=== PATIENT | female | born 1940 | race Caucasian/White ===

== ENCOUNTER 2023-04-24 09:52 | Inpatient (IN) ==
[2023-04-24] MEDS ORDERED: SODIUM CHLORIDE 0.9% 500 ML IV ONE ×2 (10:28→14:34)
--- NOTE | 2023-04-24 10:29 | Emergency Department Note ---
Impression & Plan Sepsis, Rhinovirus, Stercoral colitis, UTI (urinary tract infection), Pneumonia, COVID-19, Dehydration, Elevated lactic acid level ED Provider Note NAME: DUSTIN BOX AGE: 82 SEX: F ARRIVES VIA: Ambulance INFORMANT: Patient ED PROVIDER(S): Pedro Santiago MD CHIEF COMPLAINT: Shortness of breath, vomiting PLAN: Disposition: Admit MEDICAL DECISION MAKING: The patient is a pleasant 82-year-old woman with a past medical history of dementia, hypertension who presents to emergency department via EMS from her dementia unit and then accompanied by family member for evaluation of generalized weakness with shortness of breath and is intractable nausea and vomiting that was noticed earlier this morning. Per staff at her facility the patient was more fatigued last night and when they checked on her today noticed she appeared pale and ill. The patient's family ember reports that she did test positive for COVID-19 a week or so ago as a part of a screening effort within her facility but she was not having any symptoms at the time. They feel she may have had a cough here and there but nothing more than that. On my evaluation the patient is ill-appearing/fatigued but no acute distress, afebrile with stable vital signs. She appears clinically dry with dry cracked/mucous membranes. Skin is mottled with tenting. She has scant rhonchi of bilateral lower lung puente. Abdomen is benign. EKG without overt acute ischemia. CXR demonstrates interstitial reticular opacities and bilateral pleural effusions per my review. WBC within normal limits. There is no left shift. Platelets within normal limits. H/H 16.7/51.9 consistent with the patient's dehydration and suspected hemoconcentration. Initial lactic acid 4.4 improving to 4.0 with IV fluid hydration. Chemistry is without metabolic acidosis however. Calcium 10.4, consistent with the patient's dehydration. Electrolytes and LFTs are otherwise unremarkable. High-sensitivity troponin 23 with delta high-sensitivity troponin 22, nonspecific. Lipase not elevated. Procalcitonin is elevated at 13 raising suspicion for bacterial infection. TSH is 7 however free T4 within normal limits. UA is suspicious for infection with positive nitrites and 1+ bacteria. Respiratory bio fire was performed and was positive for COVID-19 which per report was positive a week ago and additionally positive for rhinovirus. CT of the abdomen pelvis was performed and demonstrates interstitial septal thickening at both lung bases with small pleural effusions which may suggest volume overload however given the patient's clinically dry exam there is more suspicion for pneumonia. Additional note is made of rectosigmoid fecal retention. Patient did receive 30 cc/kg of IV fluid> and additionally IV antibiotics with Zosyn. MRSA swab pending. Of note, the patient does have a POLST form for [employer] family is interested and prefers admission at this time for further medical stabilization. They are okay with continued IV fluid hydration and antibiotics. Case was discussed with MISHEL Reyes PAC, with Dr. Rincon [facility] hospitalist who will evaluate the patient for admission. Further management per admitting team. Triage Nursing notes reviewed and agree them. Prior/outside medical records reviewed Vital Signs: reviewed Differential diagnosis: Sepsis, UTI, pneumonia, metabolic, electrolyte abnormalities, cardiac sources, i ntracerebral event, toxicologic, neurologic, as well as other pathologies. ER treatment provided: See below. Diagnostics interpreted by me: ECG: Normal sinus rhythm, 83 bpm, no ectopy, no overt ST elevation or depression, QTc 413, 272. Cardiac Monitoring: An order for continuous cardiac monitoring was placed and demonstrated Normal sinus rhythm, 83 bpm, no ectopy. Laboratory studies: See below Imaging studies: See below Consultation(s): Case was discussed with MISHEL Reyes PAC, with Dr. Rincon [facility] hospitalist who will evaluate the patient for admission. HPI: The patient is a pleasant 82-year-old woman with a past medical history of dementia, hypertension who presents to emergency department via EMS from her dementia unit and then accompanied by family member for evaluation of generalized weakness with shortness of breath and is intractable nausea and vomiting that was noticed earlier this morning. Per staff at her facility the patient was more fatigued last night and when they checked on her today noticed she appeared pale and ill. The patient's family ember reports that she did test positive for COVID-19 a week or so ago as a part of a screening effort within her facility but she was not having any symptoms at the time. They feel she may have had a cough here and there but nothing more than that. ROS: See above HPI for pertinent positives & negatives. A total of 10 systems reviewed and were otherwise negative. VITALS:See Below PHYSICAL EXAMINATION: GENERAL: Awake, alert, ill-appearing, in no distress HENT: Normocephalic, atraumatic. Oropharynx with dry/cracked mucous membranes and otherwise unremarkable. EYES: Normal conjunctiva. Sclera non-icteric. NECK: Supple. No nuchal rigidity. FROM. No JVD. RESPIRATORY: Scant rhonchi of bilateral lower lung puente with normal resp iratory effort. CARDIAC: Regular rate, normal rhythm. Extremities warm and well perfused. Pulses equal. ABDOMEN: Soft, non-distended. No tenderness to palpation. No rebound or guarding. No masses. RECTAL: Deferred. MUSCULOSKELETAL: Chest examination reveals no tenderness. The back is symmetrical on inspection without obvious abnormality. There is no CVA tenderness to palpation. No joint edema. LOWER EXTREMITIES: Calves are equal size bilaterally and non-tender. No edema. No discoloration. NEURO: Pleasantly confused. No focal sensory or motor deficits noted. Moving all extremities equally. SKIN: Dry, mottled with tenting. No rash or jaundice noted. ED COURSE: Critical Care: I have personally spent greater than 35 minutes of critical care time in the direct management of this patient. This includes bedside care, interpretation of diagnostic studies, and testing, discussion with consultants, patient, and family members, and other required patient management activities. This 35 minutes is in excess of all separately billable procedures. Pedro Santiago MD Past Med/Surg History Medical History Dementia HTN (hypertension) Social History Smoking Status: Never smoker Preferred Language: Sami Allergies Allergies Allergy/AdvReac Type Severity Reaction Status Date / Time amoxicillin Allergy Anaphylaxis Verified 04/24/23 14:40 hydrochlorothiazide Allergy Unknown Unverified 04/24/23 15:17 Penicillins Allergy Unknown Unverified 04/24/23 15:17 simvastatin Allergy Unknown Unverified 04/24/23 15:17 triamterene Allergy Unknown Unverified 04/24/23 15:17 Home Meds Home Medications Medication Instructions Recorded Confirmed Centrum Gummies 50 mcg PO . AT 0600 04/24/23 04/24/23 Glucosamine 1,500 mg PO .AT 0604/24/23 04/24/23 Lactobacillus acidophilus 1 cap PO .AT 0604/24/2323 acetaminophen 500 mg tablet 500 mg PO QID PRN Pain 04/24/23 04/24/23 buspirone 10 mg tablet 10 mg PO . AT 0600,1300,1800 04/24/23 04/24/23 calcium carb-ergocalciferol (vit 2 tab PO .AT 0600, 1900 04/24/23 04/24/23 D2) 600 mg calcium-200 unit tablet carboxymethylcellulose sodium 0.25 1 drp ophthalmic (eye) . AT 04/24/23 04/24/23 % eye drops (TheraTears) 0600,2100 diclofenac sodium 1 % topical gel See Rx Instructions .Route .COMPLEX 04/24/23 04/24/23 donepezil 10 mg tablet 10 mg PO .AT 199904/24/23 04/24/23 ezetimibe 10 mg tablet (Zetia) 10 mg PO .AT 0604/24/23 04/24/23 hydrocortisone 2.5 % topical cream 1 applic topical Q8H PRN ITCH 04/24/23 04/24/23 omega-3 fatty acids 1 cap PO .AT 0604/24/23 04/24/23 polyethylene glycol 3350 17 17 g PO . AT 1300 04/24/23 04/24/23 gram/dose oral powder (Miralax) venlafaxine 37.5 mg 37.5 mg PO .AT 0604/24/23 04/24/23 capsule,extended release 24 hr (Effexor XR) venlafaxine 75 mg capsule,extended 75 [place] .[place] 59904/24/23 04/24/23 release 24 hr (Effexor XR) Results & Data (ED) Vital Signs Vital Signs - 24 hr 04/24/23 10:08 04/24/23 10:14 04/24/23 10:14 Temperature 36.6 C Temperature Source Oral Pulse Rate 86 78 Pulse Rate [Left Apical] Pulse Rhythm [Left Apical] Pulse Strength [Left Apical] Respiratory Rate 16 Respiratory Effort / Characteristics Non-Labored Respiratory Depth Normal Blood Pressure 144/94 H Blood Pressure [Right Arm] Blood Pressure Mean 110 Blood Pressure Mean [Right Arm] Pulse Oximetry 94 94 Oxygen Delivery Method Room Air Room Air Sepsis Recent Fever Within 48 Hours No Sepsis New/Unexplained Change in Mental Status No Sepsis Action Taken by Nursing No Action Required 04/24/23 10:27 04/24/23 13:06 04/24/23 14:08 Temperature Temperature Source Pulse Rate 78 Pulse Rate [Left Apical] 77 Pulse Rhythm [Left Apical] Regular Pulse Strength [Left Apical] Normal Respiratory Rate 16 Respiratory Effort / Characteristics Non-Labored Spontaneous Respiratory Depth Normal Blood Pressure Blood Pressure [Right Arm] 144/94 H Blood Pressure Mean Blood Pressure Mean [Right Arm] 110 Pulse Oximetry 94 92 Oxygen Delivery Method Room Air Room Air Sepsis Recent Fever Within 48 Hours Sepsis New/Unexplained Change in Mental Status Sepsis Action Taken by Nursing Laboratory Data Attestation: I reviewed the patient's lab results. 04/24/23 10:11 04/24/23 10:11 Lab Results 04/24/23 04/24/23 04/24/23 Range/Units 10:11 10:11 10:11 WBC 9.13 (4.8-10.8) K/ul RBC 5.47 H (4.20-5.40) M/uL Hgb 16.7 H (12.0-16.0) g/dl Hct 51.9 H (37.0-47.0) % MCV 94.9 (80.0-100.0) fL MCH 30.5 (25.0-34.0) pg MCHC 32.2 (32.0-36.0) g/dL RDW Std Deviation 45.4 (36.4-46.3) fL RDW Coeff of Edward 13.1 (11.5-14.5) % Plt Count 230 (130-400) K/uL MPV 8.6 L (9.4-12.4) fL Immature Gran % (Auto) 0.5 % Neut % (Auto) 92.5 % Lymph % (Auto) 5.5 % [place] % (Auto) 0.4 % Eos % (Auto) 0.7 % Baso % (Auto) 0.4 % Neut # (Auto) 8.44 H (1.40-6.50) K/uL Lymph # (Auto) 0.50 L (1.20-3.40) K/uL [place] # (Auto) 0.04 L (0.11-0.59) K/uL Eos # (Auto) 0.06 (0.00-0.50) K/uL Baso # (Auto) 0.04 (0.00-0.20) K/uL Immature Gran # (Auto) 0.05 (0.01-0.20) K/uL Absolute Nucleated RBC 0.02 (0.00-0.12) K/uL Nucleated RBC % (auto) 0.2 % Toxic Vacuolation 1+ PT 11.4 (9.0-12.0) Seconds INR 1.0 (0.9-1.1) Sodium 140 (136-145) mmol/L Potassium 3.7 (3.5-5.1) mmol/L Chloride 104 (98-107) mmol/L Carbon Dioxide 25 (21-32) mmol/L Anion Gap 11 (3-11) BUN 16 (6-23) mg/dl Creatinine 1.16 (0.6-1.2) mg/dl Est Cr Clr Drug Dosing Not Reportable Est GFR ( Amer) 51.5 ml/min Est GFR (Non-Af Amer) 44.4 ml/min BUN/Creatinine Ratio 13.8 (10-20) Glucose 106 H (70-99(Fasting)) mg/dl Lactate (0.4-2.0) mmol/L Calcium 10.4 H (8.6-10.3) mg/dl Phosphorus 4.5 (2.5-4.9) mg/dl Magnesium 2.0 (1.7-2.4) mg/dl Total Bilirubin 0.7 (0.2-1.0) mg/dl AST 28 (13-39) U/L ALT 19 (7-52) U/L Alkaline Phosphatase 78 (34-104) U/L Troponin I High Sens 23.4 H (0-14) pg/ml Total Protein 7.6 (6.0-8.3) gm/dl Albumin 3.8 (3.4-5.0) gm/dl Globulin 3.8 (2.5-4.0) gm/dl Albumin/Globulin Ratio 1.0 (0.9-2) Lipase 45 (11-82) U/L Procalcitonin (0-0.5) ng/ml TSH 7.100 H (0.300-4.500) uIu/ml Free T4 0.86 (0.61-1.60) ng/dl Urine Color Urine Appearance (Clear) Urine pH (4.5-7.5) Ur Specific Phelps (1.000-1.030) Urine Protein (Negative) Urine Glucose (UA) (Negative) Urine Ketones (Negative) Urine Blood (Negative) Urine Nitrite (Negative) Urine Bilirubin (Negative) Urine Urobilinogen (Negative) Ur Leukocyte Esterase (Negative) Urine WBC (Auto) (0-5) /hpf Urine RBC (Auto) (0-4) /hpf U Hyaline Cast (Auto) (0-5) /lpf U Epithel Cells (Auto) (0-5) /lpf Urine Bacteria (Auto) (Negative) Adenovirus (PCR) (NotDetected) B. pertussis DNA (PCR) (NotDetected) B.parapertussis DNA PCR (NotDetected) C. pneumoniae DNA (PCR) (NotDetected) Coronavirus OC43 (PCR) (NotDetected) Coronavirus HKU1 (PCR) (NotDetected) Coronavirus 229E (PCR) (NotDetected) SARS-CoV-2 (PCR) (NotDetected) Coronavirus NL63 (PCR) (NotDetected) Human Metapneumovir PCR (NotDetected) Influenza Type A (PCR) (NotDetected) Influenza Type B (PCR) (NotDetected) M. pneumoniae (PCR) (NotDetected) Parainfluenza 1 (PCR) (NotDetected) Parainfluenza 2 (PCR) (NotDetected) Parainfluenza 3 (PCR) (NotDetected) Parainfluenza 4 (PCR) (NotDetected) RSV (PCR) (NotDetected) Entero/Rhino (PCR) (NotDetected) 04/24/23 04/24/23 04/24/23 Range/Units 12:14 12:24 12:24 WBC (4.8-10.8) K/ul RBC (4.20-5.40) M/uL Hgb (12.0-16.0) g/dl Hct (37.0-47.0) % MCV (80.0-100.0) fL MCH (25.0-34.0) pg MCHC (32.0-36.0) g/dL RDW Std Deviation (36.4-46.3) fL RDW Coeff of Edward (11.5-14.5) % Plt Count (130-400) K/uL MPV (9.4-12.4) fL Immature Gran % (Auto) % Neut % (Auto) % Lymph % (Auto) % [place] % (Auto) % Eos % (Auto) % Baso % (Auto) % Neut # (Auto) (1.40-6.50) K/uL Lymph # (Auto) (1.20-3.40) K/uL [place] # (Auto) (0.11-0.59) K/uL Eos # (Auto) (0.00-0.50) K/uL Baso # (Auto) (0.00-0.20) K/uL Immature Gran # (Auto) (0.01-0.20) K/uL Absolute Nucleated RBC (0.00-0.12) K/uL Nucleated RBC % (auto) % Toxic Vacuolation PT (9.0-12.0) Seconds INR (0.9-1.1) Sodium (136-145) mmol/L Potassium (3.5-5.1) mmol/L Chloride (98-107) mmol/L Carbon Dioxide (21-32) mmol/L Anion Gap (3-11) BUN (6-23) mg/dl Creatinine (0.6-1.2) mg/dl Est Cr Clr Drug Dosing Est GFR ( Amer) ml/min Est GFR (Non-Af Amer) ml/min BUN/Creatinine Ratio (10-20) Glucose (70-99(Fasting)) mg/dl Lactate (0.4-2.0) mmol/L Calcium (8.6-10.3) mg/dl Phosphorus (2.5-4.9) mg/dl Magnesium (1.7-2.4) mg/dl Total Bilirubin (0.2-1.0) mg/dl AST (13-39) U/L ALT (7-52) U/L Alkaline Phosphatase (34-104) U/L Troponin I High Sens 22.1 H (0-14) pg/ml Total Protein (6.0-8.3) gm/dl Albumin (3.4-5.0) gm/dl Globulin (2.5-4.0) gm/dl Albumin/Globulin Ratio (0.9-2) Lipase (11-82) U/L Procalcitonin 13.71 H (0-0.5) ng/ml TSH (0.300-4.500) uIu/ml Free T4 (0.61-1.60) ng/dl Urine Color Yellow Urine Appearance Clear (Clear) Urine pH 5.5 (4.5-7.5) Ur Specific [place] 1.017 (1.000-1.030) Urine Protein Negative (Negative) Urine Glucose (UA) Negative (Negative) Urine Ketones Negative (Negative) Urine Blood Negative (Negative) Urine Nitrite Positive A (Negative) Urine Bilirubin Negative (Negative) Urine Urobilinogen Negative (Negative) Ur Leukocyte Esterase Trace H (Negative) Urine WBC (Auto) 1-5 (0-5) /hpf Urine RBC (Auto) 0-4 (0-4) /hpf U Hyaline Cast (Auto) 5-10 H (0-5) /lpf U Epithel Cells (Auto) 10-20 H (0-5) /lpf Urine Bacteria (Auto) 1+ H (Negative) Adenovirus (PCR) (NotDetected) B. pertussis DNA (PCR) (NotDetected) B.parapertussis DNA PCR (NotDetected) C. pneumoniae DNA (PCR) (NotDetected) Coronavirus OC43 (PCR) (NotDetected) Coronavirus HKU1 (PCR) (NotDetected) Coronavirus 229E (PCR) (NotDetected) SARS-CoV-2 (PCR) (NotDetected) Coronavirus NL63 (PCR) (NotDetected) Human Metapneumovir PCR (NotDetected) Influenza Type A (PCR) (NotDetected) Influenza Type B (PCR) (NotDetected) M. pneumoniae (PCR) (NotDetected) Parainfluenza 1 (PCR) (NotDetected) Parainfluenza 2 (PCR) (NotDetected) Parainfluenza 3 (PCR) (NotDetected) Parainfluenza 4 (PCR) (NotDetected) RSV (PCR) (NotDetected) Entero/Rhino (PCR) (NotDetected) 04/24/23 04/24/23 Range/Units 12:24 12:24 WBC (4.8-10.8) K/ul RBC (4.20-5.40) M/uL Hgb (12.0-16.0) g/dl Hct (37.0-47.0) % MCV (80.0-100.0) fL MCH (25.0-34.0) pg MCHC (32.0-36.0) g/dL RDW Std Deviation (36.4-46.3) fL RDW Coeff of Edward (11.5-14.5) % Plt Count (130-400) K/uL MPV (9.4-12.4) fL Immature Gran % (Auto) % Neut % (Auto) % Lymph % (Auto) % [place] % (Auto) % Eos % (Auto) % Baso % (Auto) % Neut # (Auto) (1.40-6.50) K/uL Lymph # (Auto) (1.20-3.40) K/uL [place] # (Auto) (0.11-0.59) K/uL Eos # (Auto) (0.00-0.50) K/uL Baso # (Auto) (0.00-0.20) K/uL Immature Gran # (Auto) (0.01-0.20) K/uL Absolute Nucleated RBC (0.00-0.12) K/uL Nucleated RBC % (auto) % Toxic Vacuolation PT (9.0-12.0) Seconds INR (0.9-1.1) Sodium (136-145) mmol/L Potassium (3.5-5.1) mmol/L Chloride (98-107) mmol/L Carbon Dioxide (21-32) mmol/L Anion Gap (3-11) BUN (6-23) mg/dl Creatinine (0.6-1.2) mg/dl Est Cr Clr Drug Dosing Est GFR ( Amer) ml/min Est GFR (Non-Af Amer) ml/min BUN/Creatinine Ratio (10-20) Glucose (70-99(Fasting)) mg/dl Lactate 4.7 H* (0.4-2.0) mmol/L Calcium (8.6-10.3) mg/dl Phosphorus (2.5-4.9) mg/dl Magnesium (1.7-2.4) mg/dl Total Bilirubin (0.2-1.0) mg/dl AST (13-39) U/L ALT (7-52) U/L Alkaline Phosphatase (34-104) U/L Troponin I High Sens (0-14) pg/ml Total Protein (6.0-8.3) gm/dl Albumin (3.4-5.0) gm/dl Globulin (2.5-4.0) gm/dl Albumin/Globulin Ratio (0.9-2) Lipase (11-82) U/L Procalcitonin (0-0.5) ng/ml TSH (0.300-4.500) uIu/ml Free T4 (0.61-1.60) ng/dl Urine Color Urine Appearance (Clear) Urine pH (4.5-7.5) Ur Specific [place] (1.000-1.030) Urine Protein (Negative) Urine Glucose (UA) (Negative) Urine Ketones (Negative) Urine Blood (Negative) Urine Nitrite (Negative) Urine Bilirubin (Negative) Urine Urobilinogen (Negative) Ur Leukocyte Esterase (Negative) Urine WBC (Auto) (0-5) /hpf Urine RBC (Auto) (0-4) /hpf U Hyaline Cast (Auto) (0-5) /lpf U Epithel Cells (Auto) (0-5) /lpf Urine Bacteria (Auto) (Negative) Adenovirus (PCR) Not Detected (NotDetected) B. pertussis DNA (PCR) Not Detected (NotDetected) B.parapertussis DNA PCR Not Detected (NotDetected) C. pneumoniae DNA (PCR) Not Detected (NotDetected) Coronavirus OC43 (PCR) Not Detected (NotDetected) Coronavirus HKU1 (PCR) Not Detected (NotDetected) Coronavirus 229E (PCR) Not Detected (NotDetected) SARS-CoV-2 (PCR) DETECTED A* (NotDetected) Coronavirus NL63 (PCR) Not Detected (NotDetected) Human Metapneumovir PCR Not Detected (NotDetected) Influenza Type A (PCR) Not Detected (NotDetected) Influenza Type B (PCR) Not Detected (NotDetected) M. pneumoniae (PCR) Not Detected (NotDetected) Parainfluenza 1 (PCR) Not Detected (NotDetected) Parainfluenza 2 (PCR) Not Detected (NotDetected) Parainfluenza 3 (PCR) Not Detected (NotDetected) Parainfluenza 4 (PCR) Not Detected (NotDetected) RSV (PCR) Not Detected (NotDetected) Entero/Rhino (PCR) DETECTED A* (NotDetected) Administered Medications Vancomycin HCl 1,500 mg/ (Sodium Chloride) 530 mls @ 200 mls/hr IV NOW ONE Stop: 04/24/23 18:08 Last Admin: 04/24/23 15:51 Dose: 200 mls/hr Documented By: BRUCE Discontinued Medications Bisacodyl (Bisacodyl 10 Mg Supp) 10 mg MI NOW STA Stop: 04/24/23 15:01 Last Admin: 04/24/23 16:18 Dose: 10 mg Documented By: BRUCE Sodium Chloride (Nss) 500 mls @ 999 mls/hr IV .Q31M ONE Stop: 04/24/23 10:58 Last Infusion: 04/24/23 12:31 Dose: 0 mls/hr Documented By: Admin: 04/24/23 11:06 Dose: 999 mls/hr Documented By: MARIAH Sodium Chloride (Nss) 1,000 mls @ 999 mls/hr IV .Q1H1M ONE Stop: 04/24/23 13:01 Last Infusion: 04/24/23 14:10 Dose: 0 mls/hr Documented By: Admin: 04/24/23 13:00 Dose: 999 mls/hr Documented By: MY Acetaminophen (Ofirmev) 1,000 mg in 100 mls @ 400 mls/hr IV NOW STA Stop: 04/24/23 12:15 Last Infusion: 04/24/23 14:10 Dose: 0 mls/hr Documented By: Admin: 04/24/23 13:00 Dose: 400 mls/hr Documented By: MY Famotidine (Pepcid 20mg Iv Push) 20 mg in 5 mls @ 2.5 mls/min IV NOW STA Stop: 04/24/23 12:02 Last Admin: 04/24/23 13:00 Dose: 2.5 mls/min Documented By: MY Piperacillin Sod/Tazobactam (Sod 4.5 gm/ Dextrose) 100 mls @ 200 mls/hr IV NOW ONE; Protocol Stop: 04/24/23 14:13 Last Admin: 04/24/23 14:43 Dose: Not Given Documented By: MARIAH Sodium Chloride (Nss) 500 mls @ 999 mls/hr IV .Q31M ONE Stop: 04/24/23 15:04 Last Infusion: 04/24/23 15:43 Dose: 0 mls/hr Documented By: Admin: 04/24/23 15:11 Dose: 999 mls/hr Documented By: BRUCE Cefepime HCl 2,000 mg/ Syringe 20 mls @ 5 mls/min IV NOW STA; Protocol Stop: 04/24/23 15:25 Last Admin: 04/24/23 15:51 Dose: 5 mls/min Documented By: BRUCE Ioversol (Optiray 320 500ml) 89 ml IV ONCE ONE Stop: 04/24/23 12:51 Last Admin: 04/24/23 12:50 Dose: 89 ml Documented By: AMAYA Lidocaine (Lidocaine 5% 1 Patch) 1 patch TD NOW STA Stop: 04/24/23 15:04 Last Admin: 04/24/23 16:18 Dose: 1 patch Documented By: BRUCE Ondansetron HCl (Ondansetron Inj 2 Mg/Ml 2 Ml Vial) 4 mg IV NOW STA Stop: 04/24/23 12:02 Last Admin: 04/24/23 12:59 Dose: 4 mg Documented By: MY Polyethylene Glycol (Polyethylene (Miralax) 17 Gm Pack) 17 gm PO NOW STA Stop: 04/24/23 15:01 Last Admin: 04/24/23 16:18 Dose: 17 gm Documented By: BRUCE Imaging Data Radiologist's Impression: Chest X-Ray 04/24/23 10:27 XR chest 1V portable CLINICAL HISTORY: sob TECHNIQUE: Single frontal radiograph of the chest was obtained. Comparison: None available at the time of this dictation. FINDINGS: No lines and tubes are seen. The cardiomediastinal silhouette is normal. Reticular interstitial opacities are seen. No evidence of pleural effusion or pneumothorax. IMPRESSION: Interstitial thickening without acute abnormality. ACT 112: Negative or not required by law. Electronically signed by: Shmuel Pritchard M.D. 04/24/2023 11:14 AM Abdomen/Pelvis CT 04/24/23 12:01 CT SCAN OF THE ABDOMEN AND PELVIS WITH IV CONTRAST CLINICAL HISTORY: Nausea and vomiting. Diarrhea. Fever. COMPARISON STUDY: No priors. TECHNIQUE: Following the IV administration of 89 cc of Optiray 320, CT scan of the abdomen and pelvis is performed from the lung bases to the proximal femora. Images are reviewed in the axial, sagittal, and coronal planes. IV contrast was administered without complication. A dose lowering technique was utilized adhering to the principles of ALARA. There is streak artifact from the arms which could not be elevated above the abdomen. CT DOSE: 1225.37 mGy.cm FINDINGS: Lung bases: The heart is top normal in size and without pericardial effusion. There are coronary artery calcifications. There are small pleural effusions with dependent consolidation. Intralobular septal thickening is noted at the lung bases. There is a small hiatal hernia. Liver: The contrast-enhanced liver is normal in size, contour, and attenuation. Fatty infiltration is seen adjacent to the falciform ligament. A 10 mm right lobe hypodensity on image #49 and likely represents a cyst but cannot be definitively characterized due to small size and streak artifact. There is no intrahepatic biliary ductal dilatation. The hepatic veins and portal veins are patent. Gallbladder: Unremarkable. Spleen: Normal in size and attenuation. Pancreas: Unremarkable. Adrenal glands: Unremarkable. Kidneys: The contrast enhanced kidneys demonstrate mild cortical atrophy and are without hydronephrosis. The kidneys enhance symmetrically. There are 2 right renal cyst which measure up to 5.6 cm. Abdominal vasculature: The abdominal aorta is normal in course and caliber noting moderate to advanced atherosclerotic calcification. Bowel: There is rectosigmoid fecal retention. There is mild rectal wall thickening and hyperemia with faint surrounding inflammation. There are scattered diverticula of the small bowel and colon without CT evidence of acute diverticulitis. No bowel obstruction is seen. There is a small duodenal diverticulum. The appendix is not visualized. Peritoneum: There is no intraperitoneal free air or abdominal ascites. Lymphadenopathy: None. Pelvic viscera: The bladder is largely decompressed and grossly unremarkable. The uterus and adnexa are normal as visualized. There is a fat-containing right groin hernia. Skeletal structures: The skeletal structures are osteopenic. No lytic or blastic lesions are seen. There is advanced lumbosacral spondylosis. IMPRESSION: 1. Intraoperative septal thickening is seen at both lung bases and there are small pleural effusions. These findings suggest fluid overload/congestive failure. Correlate clinically. 2. Rectosigmoid fecal retention with findings suggestive of a mild stercoral proctitis. Correlate clinically. 3. Additional findings as above. ACT 112: Negative or not required by law. Electronically signed by: Nadir Rodas M.D. 04/24/2023 1:14 PM Discharge Plan Visit Data Chief Complaint: Weakness Stated Complaint: WEAKNESS ED Provider: Pedro Santiago Discharge Problem: Sepsis, Rhinovirus, Stercoral colitis, UTI (urinary tract infection), Pneumonia , COVID-19, Dehydration, Elevated lactic acid level Patient Disposition: Admitted As Inpatient Discharge Instructions Interventions: ED Discharge Assessment Last Done: 04/24/23 16:59
[2023-04-24 10:41] LABS: Hematocrit (blood only) 51.9 % (37.0-47.0); Hemoglobin 16.7 g/dl (12.0-16.0); Mean Corpuscular Hemoglobin 30.5 pg (25.0-34.0); Mean Corpuscular Hgb Conc 32.2 g/dL (32.0-36.0); Mean Corpuscular Volume 94.9 fL (80.0-100.0); Mean Platelet Volume 8.6 fL (9.4-12.4); Nucleated RBC # (auto) 0.02 K/uL (0.00-0.12); Nucleated RBC % (auto) 0.2 %; Platelet Count 230 K/uL (130-400); RDW Coefficient of Variation 13.1 % (11.5-14.5); RDW Standard Deviation 45.4 fL (36.4-46.3); Red Blood Count 5.47 M/uL (4.20-5.40); White Blood Count 9.13 K/ul (4.8-10.8)
[2023-04-24 11:02] LABS: Alanine Aminotransferase 19 U/L (7-52); Albumin Level 3.8 gm/dl (3.4-5.0); Alkaline Phosphatase 78 U/L (34-104); Anion Gap 11 (3-11); Aspartate Aminotransferase 28 U/L (13-39); BUN Creatinine Ratio 13.8 (10-20); Bilirubin,Total 0.7 mg/dl (0.2-1.0); Blood Urea Nitrogen 16 mg/dl (6-23); Calcium 10.4 mg/dl (8.6-10.3); Carbon Dioxide 25 mmol/L (21-32); Chloride 104 mmol/L (98-107); Est GFR (African American) 51.5 ml/min; Est GFR (Non-African American) 44.4 ml/min; Globulin 3.8 gm/dl (2.5-4.0); Glucose 106 mg/dl (70-99(Fasting)); Lipase 45 U/L (11-82); Phosphorus 4.5 mg/dl (2.5-4.9); Potassium 3.7 mmol/L (3.5-5.1); Sodium 140 mmol/L (136-145); Total Protein 7.6 gm/dl (6.0-8.3)
[2023-04-24 11:03] LABS: Basophils # (auto) 0.04 K/uL (0.00-0.20); Basophils % (auto) 0.4 %; Eosinophils # (auto) 0.06 K/uL (0.00-0.50); Eosinophils % (auto) 0.7 %; Immature Granulocytes # (auto) 0.05 K/uL (0.01-0.20); Immature Granulocytes % (auto) 0.5 %; Lymphocytes % (auto) 5.5 %; Monocytes # (auto) 0.04 K/uL (0.11-0.59); Monocytes % (auto) 0.4 %; Neutrophils # (auto) 8.44 K/uL (1.40-6.50); Neutrophils % (auto) 92.5 %; Toxic Vacuolation 1+
[2023-04-24 11:07] LABS: Troponin I High Sensitivity 23.4 pg/ml (0-14)
[2023-04-24 11:14] LABS: Prothrombin Time 11.4 Seconds (9.0-12.0)
--- NOTE | 2023-04-24 11:15 | XRay Report ---
XR chest 1V portable CLINICAL HISTORY: sob TECHNIQUE: Single frontal radiograph of the chest was obtained. Comparison: None available at the time of this dictation. FINDINGS: No lines and tubes are seen. The cardiomediastinal silhouette is normal. Reticular interstitial opaci ties are seen. No evidence of pleural effusion or pneumothorax. IMPRESSION: Interstitial thickening without acute abnormality. ACT 112: Negative or not required by law. Electronically signed by: Shmuel Pritchard M.D. 04/24/2023 11:14 AM
[2023-04-24 11:52] LABS: T4 Free Thyroxine 0.86 ng/dl (0.61-1.60)
[2023-04-24] MEDS ORDERED: FAMOTIDINE 20MG IV PUSH 20 MG/5 ML SYR IV STA (12:01)
[2023-04-24] MEDS ORDERED: SODIUM CHLORIDE 0.9% 1,000 ML IV ONE (12:01)
[2023-04-24] MEDS ORDERED: ACETAMINOPHEN 1,000 MG/100 ML VIAL IV STA (12:01)
[2023-04-24] MEDS ORDERED: ONDANSETRON INJ 2 MG/ML 2 ML VIAL IV STA (12:01)
[2023-04-24 12:47] LABS: Appearance Urine Clear (Clear); Bacteria Urine Automated 1+ (Negative); Bilirubin Urine Negative (Negative); Blood Urine Negative (Negative); Color Urine Yellow; Glucose Urine UA Negative (Negative); Ketones Urine Negative (Negative); Leukocyte Esterase Urine Trace (Negative); Nitrite Urine Positive (Negative); Protein Urine Negative (Negative); RBC Urine Automated 0-4 /hpf (0-4); Specific Gravity Urine 1.017 (1.000-1.030); Urobilinogen Urine Negative (Negative); pH Urine 5.5 (4.5-7.5)
[2023-04-24] MEDS ORDERED: OPTIRAY 320 500ml IV ONE (12:50)
--- NOTE | 2023-04-24 12:59 | Electrocardiogram Report ---
Test Reason : Blood Pressure : / mmHG Vent. Rate : 083 BPM Atrial Rate : 083 BPM P-R Int : 160 ms QRS Dur : 072 ms QT Int : 352 ms P-R-T Axes : 044 -26 128 degrees QTc Int : 413 ms Normal sinus rhythm Old Inferior infarct Abnormal ECG No previous ECGs available Confirmed by Kwame Barajas ([id number]) on 04/24/2023 12:59:13 PM Referred By: REFERRED SELF Confirmed By:Kwame Barajas
--- NOTE | 2023-04-24 13:15 | CT Scan Report ---
CT SCAN OF THE ABDOMEN AND PELVIS WITH IV CONTRAST CLINICAL HISTORY: Nausea and vomiting. Diarrhea. Fever. COMPARISON STUDY: No priors. TECHNIQUE: Following the IV administration of 89 cc of Optiray 320, CT scan of the abdomen and pelvi s is performed from the lung bases to the proximal femora. Images are reviewed in the axial, sagittal , and coronal planes. IV contrast was administered without complication. A dose lowering technique wa s utilized adhering to the principles of ALARA. There is streak artifact from the arms which could no t be elevated above the abdomen. CT DOSE: 1225.37 mGy.cm FINDINGS: Lung bases: The heart is top normal in size and without pericardial effusion. There are coronary deepthi ry calcifications. There are small pleural effusions with dependent consolidation. Intralobular septa l thickening is noted at the lung bases. There is a small hiatal hernia. Liver: The contrast-enhanced liver is normal in size, contour, and attenuation. Fatty infiltration is seen adjacent to the falciform ligament. A 10 mm right lobe hypodensity on image #49 and likely repr esents a cyst but cannot be definitively characterized due to small size and streak artifact. There i s no intrahepatic biliary ductal dilatation. The hepatic veins and portal veins are patent. Gallbladder: Unremarkable. Spleen: Normal in size and attenuation. Pancreas: Unremarkable. Adrenal glands: Unremarkable. Kidneys: The contrast enhanced kidneys demonstrate mild cortical atrophy and are without hydronephros is. The kidneys enhance symmetrically. There are 2 right renal cyst which measure up to 5.6 cm. Abdominal vasculature: The abdominal aorta is normal in course and caliber noting moderate to advance d atherosclerotic calcification. Bowel: There is rectosigmoid fecal retention. There is mild rectal wall thickening and hyperemia with faint surrounding inflammation. There are scattered diverticula of the small bowel and colon without CT evidence of acute diverticulitis. No bowel obstruction is seen. There is a small duodenal diverti culum. The appendix is not visualized. Peritoneum: There is no intraperitoneal free air or abdominal ascites. Lymphadenopathy: None. Pelvic viscera: The bladder is largely decompressed and grossly unremarkable. The uterus and adnexa a re normal as visualized. There is a fat-containing right groin hernia. Skeletal structures: The skeletal structures are osteopenic. No lytic or blastic lesions are seen. Th ere is advanced lumbosacral spondylosis. IMPRESSION: 1. Intraoperative septal thickening is seen at both lung bases and there are small pleural effusions. These findings suggest fluid overload/congestive failure. Correlate clinically. 2. Rectosigmoid fecal retention with findings suggestive of a mild stercoral proctitis. Correlate cl inically. 3. Additional findings as above. ACT 112: Negative or not required by law. Electronically signed by: Nadir Rodas M.D. 04/24/2023 1:14 PM
[2023-04-24 13:52] LABS: Adenovirus PCR Not Detected (NotDetected); Bordetella parapertussis PCR Not Detected (NotDetected); Bordetella pertussis PCR Not Detected (NotDetected); Chlamydia pneumoniae PCR Not Detected (NotDetected); Coronavirus 229E PCR Not Detected (NotDetected); Coronavirus HKU1 PCR Not Detected (NotDetected); Coronavirus NL63 PCR Not Detected (NotDetected); Coronavirus OC43PCR Not Detected (NotDetected); Human Metapneumovirus PCR Not Detected (NotDetected); Influenza A PCR Not Detected (NotDetected); Influenza B PCR Not Detected (NotDetected); Mycoplasma pneumoniae PCR Not Detected (NotDetected); Parainfluenza Virus 1 PCR Not Detected (NotDetected); Parainfluenza Virus 2 PCR Not Detected (NotDetected); Parainfluenza Virus 3 PCR Not Detected (NotDetected); Parainfluenza Virus 4 PCR Not Detected (NotDetected); Respiratory Syncytial VirusPCR Not Detected (NotDetected)
[2023-04-24] MEDS: PIPERACILLIN/TAZOBACTAM 4.5 GM in DEXTROSE 5% MINI-B 100 ML IV ONE ×2 (14:09→14:43)
--- NOTE | 2023-04-24 14:14 | History & Physical Report ---
Date of Service April 24, 2023 Assessment & Plan (1) Generalized weakness: Plan: -Admit to [facility] on pulse oximetry -Currently hemodynamically stable and stable on RA -Patient presented from [facility] at [facility] for generalize weakness, diarrhea, nausea, vomiting. -Lactate elevated at 4.5, procal elevated at 13, CT shows signs of possible pneumonia -Her weakness is likely multifactorial including Rhinovirus, possible Pneumonia vs UTI -S/P 1.5L NSS in the ED, will hold additional IV fluids at this time as she is hemodynamically stable with signs of overload on chest xray -Will cover with broad spectrum abx for now with cefepime and vancomycin -Will follow up on repeat lactate ordered on admission, if she becomes hypotensive will continue -Will obtain MRSA swab, follow urine and blood cultures -Fall precautions, aspirations, PT/OT -FATOUMATA's for DVT PPX -Clear liquids for now, advance as tolerated -AM CBC, BMP, Mag, PT/INR (2) Dementia: Plan: -Severe -Continue buspar, donepezil -Fall precuations (3) Pneumonia: Plan: -Signs of possible pneumonia in the lower lung puente on CT of the abd/pelvis -Procal of 13 -COuld be superimposed bacterial pneumonia after recent covid 19 infection -Will obtain MRSA swab -Continue with Cefepime and vanc for now -Symtpomatic treatment (4) UTI (urinary tract infection): Plan: -UA with possible UTI -Patient is not a reliable historian -Continue with cefepime -Follow urine and blood cultures (5) Stercoral colitis: Plan: -Mild, noted on CT of the abd/pelvis today -Stool ball is < 8 cm, no need for GI consult at this time -Continue aggressive bowel regimen with (6) Lactate blood increase: Plan: -Likely due to acute infections and being intravascularly depleted -Hemodynamically stable after 1.5 L NSS bolus -Will follow repeat lactate (7) Rhinovirus: Plan: -Positive today on Biofire -Stable on RA -Symptomatic treatment for now >Incentive spirometry >Flutter therapy >Prn O2 and albuterol (8) COVID-19: Plan: -Likely still testing positive after being positive at the end of March at [facility] -Had been asymptomatic since testing positive -Stable on RA -Symptomatic treatment with incentive spirometry, flutter therapy, prn albuterol -Keep SpO2 at or above 94% (9) Hypercalcemia: Plan: -10.4 today -Likely due to dehydration -Monitor am BMP (10) Lumbar stenosis: Plan: -No acute trauma on CT abdomen/pelvis -Back pain is chronic per family -Will order prn tylenol, lidocaine patche, and heating pad (11) HTN (hypertension): Plan: -Stable off antihypertensive -Continue to monitor (12) Anxiety: Plan: -Continue effexor Plan The patient was discussed with Dr. Rincon at the time of the admission History of Present Illness Chief Complaint: Increased generalized weakness and SOB Primary Care Provider: Og Farooq Dedra is an 82 year old female with a PMH significant for Dementia, depression/anxiety, HTN, hyperlipidemia, who presented to the [facility] ED on 04/24 from [facility] Dementia unit with increasing SOB and generalized weakness. The patient remained stable in the ED. Labs were significant for a leukopenia of 0.50, initial lactate of 4.7, calcium of 10.4, initial high sen trop of 23, UA with positive nitrites, trace leukocyte esterase, 1+ bacterial, 10-20 epithelial cells, and 5-10 hyaline casts, procal of 13, Rhinovirus and Covid 19 positive. Chest xray was read as interstitial thickening without acute abnormality. CT of the abd/pelvis w/IV con was read as 1. Intraoperative septal thickening is seen at both lung bases and there are small pleural effusions. These findings suggest fluid overload/congestive failure. Correlate clinically. 2. Rectosigmoid fecal retention with findings suggestive of a mild stercoral proctitis. Correlate clinically. 3. Additional findings as above.. Prior to admission the patient was given 1.5L NSS, 1gm IV Acetaminophen, 20 mg IV famotidine, and 4 mg IV Zofran. At the time of the exam the patient was lying in bed in no acute distress with her [id number] sitting bedside. History was taken from the daughter in law due to the patient's severe dementia. The patient tested positive for covid 19 at the end of March per the daughter. But she was essentially asymptomatic during that time. Over the past 24-48 hours she has had progressive weakness, decreased oral intake, nausea with non-bloody emesis and non-bloody diarrhea. Due to continued weakness and increased confusion she was sent in to be e valuated. The patient's only complaint at this time is low back pain which is chronic per her Daughter. We discussed code status. The patient is a DNR/DNI and has a POLST form. They are fine with IV fluids and antibiotics but would not want aggressive treatment measures. If she were to continue to decline they would likely want to transition her to comfort measures as her dementia is severe. Please refer to Dr. Rincon's attestation for any changes to the treatment plan Allergies Allergy/AdvReac Type Severity Reaction Status Date / Time amoxicillin Allergy Anaphylaxis Verified 04/24/23 14:40 hydrochlorothiazide Allergy Unknown Unverified 04/24/23 15:17 Penicillins Allergy Unknown Unverified 04/24/23 15:17 simvastatin Allergy Unknown Unverified 04/24/23 15:17 triamterene Allergy Unknown Unverified 04/24/23 15:17 Home Medications Medication Instructions Recorded Confirmed Type Centrum Gummies 50 mcg PO . AT 0600 04/24/23 04/24/23 History Glucosamine 1,500 [place] .[place] 59904/24/23 04/24/23 History Lactobacillus acidophilus 1 cap PO .AT 0604/24/23 04/24/23 History acetaminophen 500 mg tablet 500 mg PO QID PRN Pain 04/24/23 04/24/23 History buspirone 10 mg tablet 10 mg PO . AT 0600,1300,1800 04/24/23 04/24/23 History calcium carb-ergocalciferol (vit 2 tab PO .AT 0600, 1900 04/24/23 04/24/23 History D2) 600 mg calcium-200 unit tablet carboxymethylcellulose sodium 0.25 1 drp ophthalmic (eye) . AT 04/24/23 04/24/23 History % eye drops (TheraTears) 0600,2100 diclofenac sodium 1 % topical gel See Rx Instructions .Route .COMPLEX 04/24/23 04/24/23 History donepezil 10 mg tablet 10 mg PO .AT 199904/24/23 04/24/23 History ezetimibe 10 mg tablet (Zetia) 10 mg PO .AT 0604/24/23 04/24/23 History hydrocortisone 2.5 % topical cream 1 applic topical Q8H PRN ITCH 04/24/23 04/24/23 History omega-3 fatty acids 1 cap PO .AT 0604/24/23 04/24/23 History polyethylene glycol 3350 17 17 g PO . AT 1300 04/24/23 04/24/23 History gram/dose oral powder (Miralax) venlafaxine 37.5 mg 37.5 mg PO .AT 0604/24/23 04/24/23 History capsule,extended release 24 hr (Effexor XR) venlafaxine 75 mg capsule,[place] [address]/24/23 04/24/23 History release 24 hr (Effexor XR) Past Med/Surg History Social History Smoking Status: Never smoker Preferred Language: Greek Physical Exam Physical Exam: Physical Exam: General: Confused but in no acute distress, stated age, non-toxic appearing HEENT: Normocephalic, atraumatic, no scleral icterus, pupils around round, symmetrical, and reactive to light, moist mucus membranes, trachea midline, no thyromegaly Chest/Pulm: No respiratory distress, symmetrical chest expansion, decreased breath sounds in the BL lower lung puente, otherwise CTA Cardiac: RRR, no murmurs noted Abdomen: Negative for ascites and bruising, hypoactive bowel sounds, soft, non-tender to palpation throughout Musculoskeletal: patient is tender to palpation over the lumbar spine but without crepitus or acute trauma, no sign of infection on inspection on the entire spine, Symmetrical and without signs of acute trauma, upper and lower extremities with full ROM, no atrophy, spasticity, or flaccidity Extremities: Radial, dorsalis pedis, and posterior tibial pulses are intact and symmetrical, no edema noted in the BL LE's Skin: Warm, dry, no rashes , lesions, or scars noted Neuro: Alert and oriented to person only, no focal defects, no tremors noted Psych: No acute distress, pleasantly confused during the exam Results & Data Results & Data Vital Signs (Past 12 Hours) Vital Signs Temp Pulse Pulse Resp BP BP Pulse Ox 04/24/23 14:08 78 04/24/23 13:06 77 16 144/94 H 92 04/24/23 10:27 94 04/24/23 10:14 94 04/24/23 10:14 36.6 C 78 16 144/94 H 94 04/24/23 10:08 86 O2 Del Method 04/24/23 14:08 04/24/23 13:06 Room Air 04/24/23 10:27 Room Air 04/24/23 10:14 Room Air 04/24/23 10:14 Room Air 04/24/23 10:08 Laboratory Results Abnormal lab results 04/24/23 04/24/23 04/24/23 Range/Units 10:11 10:11 12:14 RBC 5.47 H (4.20-5.40) M/uL Hgb 16.7 H (12.0-16.0) g/dl Hct 51.9 H (37.0-47.0) % MPV 8.6 L (9.4-12.4) fL Neut # (Auto) 8.44 H (1.40-6.50) K/uL Lymph # (Auto) 0.50 L (1.20-3.40) K/uL Alpine # (Auto) 0.04 L (0.11-0.59) K/uL Glucose 106 H (70-99(Fasting)) mg/dl Lactate (0.4-2.0) mmol/L Calcium 10.4 H (8.6-10.3) mg/dl Troponin I High Sens 23.4 H (0-14) pg/ml Procalcitonin (0-0.5) ng/ml TSH 7.100 H (0.300-4.500) uIu/ml Urine Nitrite Positive A (Negative) Ur Leukocyte Esterase Trace H (Negative) U Hyaline Cast (Auto) 5-10 H (0-5) /lpf U Epithel Cells (Auto) 10-20 H (0-5) /lpf Urine Bacteria (Auto) 1+ H (Negative) SARS-CoV-2 (PCR) (NotDetected) Entero/Rhino (PCR) (NotDetected) 04/24/23 04/24/23 04/24/23 Range/Units 12:24 12:24 12:24 RBC (4.20-5.40) M/uL Hgb (12.0-16.0) g/dl Hct (37.0-47.0) % MPV (9.4-12.4) fL Neut # (Auto) (1.40-6.50) K/uL Lymph # (Auto) (1.20-3.40) K/uL Alpine # (Auto) (0.11-0.59) K/uL Glucose (70-99(Fasting)) mg/dl Lactate 4.7 H* (0.4-2.0) mmol/L Calcium (8.6-10.3) mg/dl Troponin I High Sens 22.1 H (0-14) pg/ml Procalcitonin 13.71 H (0-0.5) ng/ml TSH (0.300-4.500) uIu/ml Urine Nitrite (Negative) Ur Leukocyte Esterase (Negative) U Hyaline Cast (Auto) (0-5) /lpf U Epithel Cells (Auto) (0-5) /lpf Urine Bacteria (Auto) (Negative) SARS-CoV-2 (PCR) (NotDetected) Entero/Rhino (PCR) (NotDetected) 04/24/23 Range/Units 12:24 RBC (4.20-5.40) M/uL Hgb (12.0-16.0) g/dl Hct (37.0-47.0) % MPV (9.4-12.4) fL Neut # (Auto) (1.40-6.50) K/uL Lymph # (Auto) (1.20-3.40) K/uL Alpine # (Auto) (0.11-0.59) K/uL Glucose (70-99(Fasting)) mg/dl Lactate (0.4-2.0) mmol/L Calcium (8.6-10.3) mg/dl Troponin I High Sens (0-14) pg/ml Procalcitonin (0-0.5) ng/ml TSH (0.300-4.500) uIu/ml Urine Nitrite (Negative) Ur Leukocyte Esterase (Negative) U Hyaline Cast (Auto) (0-5) /lpf U Epithel Cells (Auto) (0-5) /lpf Urine Bacteria (Auto) (Negative) SARS-CoV-2 (PCR) DETECTED A* (NotDetected) Entero/Rhino (PCR) DETECTED A* (NotDetected) Diagnostic Findings Chest X-Ray 04/24/23 10:27 XR chest 1V portable CLINICAL HISTORY: sob TECHNIQUE: Single frontal radiograph of the chest was obtained. Comparison: None available at the time of this dictation. FINDINGS: No lines and tubes are seen. The cardiomediastinal silhouette is normal. Reticular interstitial opacities are seen. No evidence of pleural effusion or pneumothorax. IMPRESSION: Interstitial thickening without acute abnormality. ACT 112: Negative or not required by law. Electronically signed by: Shmuel Pritchard M.D. 04/24/2023 11:14 AM Abdomen/Pelvis CT 04/24/23 12:01 CT SCAN OF THE ABDOMEN AND PELVIS WITH IV CONTRAST CLINICAL HISTORY: Nausea and vomiting. Diarrhea. Fever. COMPARISON STUDY: No priors. TECHNIQUE: Following the IV administration of 89 cc of Optiray 320, CT scan of the abdomen and pelvis is performed from the lung bases to the proximal femora. Images are reviewed in the axial, sagittal, and coronal planes. IV contrast was administered without complication. A dose lowering technique was utilized adhering to the principles of ALARA. There is streak artifact from the arms which could not be elevated above the abdomen. CT DOSE: 1225.37 mGy.cm FINDINGS: Lung bases: The heart is top normal in size and without pericardial effusion. There are coronary artery calcifications. There are small pleural effusions with dependent consolidation. Intralobular septal thickening is noted at the lung bases. There is a small hiatal hernia. Liver: The contrast-enhanced liver is normal in size, contour, and attenuation. Fatty infiltration is seen adjacent to the falciform ligament. A 10 mm right lobe hypodensity on image #49 and likely represents a cyst but cannot be definitively characterized due to small size and streak artifact. There is no intrahepatic biliary ductal dilatation. The hepatic veins and portal veins are patent. Gallbladder: Unremarkable. Spleen: Normal in size and attenuation. Pancreas: Unremarkable. Adrenal glands: Unremarkable. Kidneys: The contrast enhanced kidneys demonstrate mild cortical atrophy and are without hydronephrosis. The kidneys enhance symmetrically. There are 2 right renal cyst which measure up to 5.6 cm. Abdominal vasculature: The abdominal aorta is normal in course and caliber noting moderate to advanced atherosclerotic calcification. Bowel: There is rectosigmoid fecal retention. There is mild rectal wall thickening and hyperemia with faint surrounding inflammation. There are scattered diverticula of the small bowel and colon without CT evidence of acute diverticulitis. No bowel obstruction is seen. There is a small duodenal diverticulum. The appendix is not visualized. Peritoneum: There is no intraperitoneal free air or abdominal ascites. Lymphadenopathy: None. Pelvic viscera: The bladder is largely decompressed and grossly unremarkable. The uterus and adnexa are normal as visualized. There is a fat-containing right groin hernia. Skeletal structures: The skeletal structures are osteopenic. No lytic or blastic lesions are seen. There is advanced lumbosacral spondylosis. IMPRESSION: 1. Intraoperative septal thickening is seen at both lung bases and there are small pleural effusions. These findings suggest fluid overload/congestive failure. Correlate clinically. 2. Rectosigmoid fecal retention with findings suggestive of a mild stercoral proctitis. Correlate clinically. 3. Additional findings as above. ACT 112: Negative or not required by law. Electronically signed by: Nadir Rodas M.D. 04/24/2023 1:14 PM ECG Additional Comments: Normal sinus rhythm Old Inferior infarct Abnormal ECG No previous ECGs available Confirmed by Kwame Barajas ([id number]) on 04/24/2023 12:59:13 PM Code Status & VTE Plan Code Status DNR/DNI VTE Prophylaxis Plan VTE Prophylaxis will be ordered: Yes Supervising Physician Co-Signing Physician Notes Patient seen and examined, chart reviewed, case discussed with Stephen Hugo PA-C and I agree with the assessment and plan as above except as otherwise noted Labs and images reviewed 82-year-old female with recent COVID end of March who presents with increasing shortness of breath, generalized weakness, fatigue. Lactate 4.7 on admission, UA with bacteria, leukocyte esterase, 10-20 epithelial cells, she is rhinovirus positive and additional to residual COVID-19 positive. Procalcitonin is significantly elevated. Agree with treatment for pneumonia given new respiratory symptoms DDx includes urosepsis with elevated PCT and potential effect. He will. Agree with treating with cefepime/Zosyn at this time, follow blood cultures and urine cultures. Lungs are diminished at the bedside. History is limited by severe dementia. Defer additional fluids, normotensive and patient is not tachycardic. Repeat lactate ordered at time of admitting assessment. Troponin borderline elevated without chest pain and downtrending. Agree with assessment and management above PG Care Time/CCT Total # of Minutes Spent Total Time Spent with Patient: Total time spent is greater than 50% in coordination of care (as documented) at patient's floor/unit and/or counseling patient: [place] [address] INT INP/OBS CARE MIN Patient Type New History Comprehensive Exam Comprehensive Medical Decision Making Moderate Complexity Diagnoses Generalized weakness R53.1 Dementia F03.90 Pneumonia J18.9 UTI (urinary tract infection) N39.0 Stercoral colitis K52.89 Lactate blood increase R79.89 Rhinovirus B34.8 COVID-19 U07.1 Hypercalcemia E83.52 Lumbar stenosis M48.061 HTN (hypertension) I10 Anxiety F41.9
[2023-04-24 14:20] LABS: Coronavirus CoV-2 (COVID19)PCR DETECTED (NotDetected); Rhinovirus/Enterovirus PCR DETECTED (NotDetected)
[2023-04-24] MEDS ORDERED: VANCOMYCIN HCL 1,000 MG in SODIUM CHLORIDE 0.9% 250 ML IV STA (14:58)
[2023-04-24] MEDS ORDERED: VANCOMYCIN CONSULT ACTIVE PRN (14:58)
[2023-04-24] MEDS ORDERED: bisacodyL 10 MG SUPP PR STA (15:00)
[2023-04-24] MEDS ORDERED: POLYETHYLENE (MIRALAX) 17 GM PACK PO STA (15:00)
[2023-04-24] MEDS ORDERED: LIDOCAINE 5% 1 PATCH TD STA (15:03)
[2023-04-24] MEDS ORDERED: ACETAMINOPHEN 325 MG TAB PO PRN (15:09)
[2023-04-24] MEDS ORDERED: CEFEPIME 2,000 MG in SYRINGE 0 ML IV STA (15:22)
[2023-04-24] MEDS ORDERED: VANCOMYCIN HCL 1,500 MG in SODIUM CHLORIDE 0.9% 500 ML IV ONE (15:30)
[2023-04-24] MEDS ORDERED: Patient's HEIGHT &/or WEIGHT Needed SCH (15:30)
[2023-04-24] MEDS ORDERED: ALBUTEROL 0.5% NEB SOLN 2.5 MG/0.5 ML VIAL NEB PRN (15:37)
--- NOTE | 2023-04-24 18:30 | Pharmacy Report ---
Pharmacy PK ABX Note - Date of Service April 24, 2023 - Assessment and Plan Assessment 82 year old F receiving vancomycin/cefepime for empiric treatment of possible pneumonia/UTI. Pertinent microbiologic data includes: Blood cultures pending, urine culture pending. Patient with COVID 19 infection end of March- continues to be positive on BIOFIRE. Also positive for Entero/Rhinovirus.Nasal MRSA swab pending. No prior records at our facility. Plan Vancomycin * Loading dose: 1500 mg IV x 1 * Maintenance dose: 1000 mg IV every 24 hours * Regimen is predicted to achieve target AUC/KWADWO of 400-600 mg/L.hr * Level to be ordered if continued >48 hours Pharmacy will continue to follow and will adjust dose/frequency as necessary. Thank you. Pharmacy has transitioned to AUC monitoring for vancomycin. AUC/KWADWO is the preferred PK/PD target and is associated with decreased risk of nephrotoxicity compared to traditional trough targets.
[2023-04-24 20:45] LABS: Adenovirus F 40/41 PCR Not Detected (NotDetected); Astrovirus PCR Not Detected (NotDetected); Campylobacter PCR Not Detected (NotDetected); Cryptosporidium PCR Not Detected (NotDetected); Cyclospora cayetanensis PCR Not Detected (NotDetected); Entamoeba histolytica PCR Not Detected (NotDetected); Enteroaggregative E.coli(EAEC) Not Detected (NotDetected); Enterotoxigenic E.coli (ETEC) Not Detected (NotDetected); Giardia lamblia PCR Not Detected (NotDetected); Norovirus GI/GII PCR Not Detected (NotDetected); Plesiomonas shigelloides PCR Not Detected (NotDetected); Rotavirus A PCR Not Detected (NotDetected); Salmonella PCR Not Detected (NotDetected); Sapovirus PCR Not Detected (NotDetected); Shiga-like Toxin E.coli (STEC) Not Detected (NotDetected); Shigella/Enteroinvasive E.coli Not Detected (NotDetected); Vibrio cholerae PCR Not Detected (NotDetected); Vibrio species PCR Not Detected (NotDetected); Yersinia enterocolitica PCR Not Detected (NotDetected)
[2023-04-24] MEDS ORDERED: VANCOMYCIN HCL 1,000 MG in SODIUM CHLORIDE 0.9% 250 ML IV SCH (21:00)
[2023-04-24 21:11] LABS: Enteropathogenic E.coli (EPEC) DETECTED (NotDetected)
[2023-04-24] MEDS: MELATONIN 3 MG TAB PO PRN (21:41)
[2023-04-24] MEDS: EZETIMIBE 10 MG TAB PO SCH (21:41)
[2023-04-24] MEDS: busPIRone 5 MG TAB PO SCH (21:41)
[2023-04-24] MEDS: DONEPEZIL HCL 10 MG TAB PO SCH (21:42)
[2023-04-24] MEDS: VENLAFAXINE HCL XR 37.5 MG CAPXR PO SCH (21:42)
[2023-04-24] MEDS: VENLAFAXINE HCL XR 75 MG CAPXR PO SCH (21:42)
[2023-04-24] MEDS: DOCUSATE SODIUM 100 MG CAP PO SCH (21:43)
[2023-04-24] MEDS: ARTIFICIAL TEARS OP SCH (21:43)
[2023-04-25] MEDS: CEFEPIME 2,000 MG in SYRINGE 0 ML IV SCH ×2 (05:01→16:14)
[2023-04-25] MEDS: ARTIFICIAL TEARS OP SCH ×2 (05:02→21:36)
[2023-04-25] MEDS: EZETIMIBE 10 MG TAB PO SCH (05:02)
[2023-04-25] MEDS: VENLAFAXINE HCL XR 37.5 MG CAPXR PO SCH (05:02)
[2023-04-25] MEDS: VENLAFAXINE HCL XR 75 MG CAPXR PO SCH (05:02)
[2023-04-25] MEDS: busPIRone 5 MG TAB PO SCH ×3 (05:02→18:07)
[2023-04-25] MEDS: DOCUSATE SODIUM 100 MG CAP PO SCH (07:46)
--- NOTE | 2023-04-25 08:12 | Hospitalist Progress Note ---
Date of Service April 25, 2023 Assessment & Plan (1) Generalized weakness: Plan: metabolic encephalopathy, multifactorial, Covid, entero-/rhinovirus, and stercoral colitis with enteropathogenic ecoli suggested on stool pcr Sepsis with elevated lactic acid on presentation, pulmonary changes on CXR could be viral pneumonia, consider viral with confirmed viral infection however is on antibiotics to cover as concern for sepsis on presentation from sterile coral c olitis also now with gram-negative urinary source and possible contaminant gram-positive's blood culture sepsis unclear source poa could be any of the above -S/P 1.5L NSS in the ED,no full volume as abnormal chest x-ray did limited volume resuscitation -with constipation and serocoral colitis, will have stool cathartics did have large stool ball seen on CT scan - cefepime and vancomycin --Clear liquids for now, advance as tolerated demand ischemia possibly chronic troponin elevation (2) Dementia: Plan: -Severe -Continue buspar, donepezil -Fall precuations (3) Stercoral colitis: Plan: -Mild, noted on CT of the abd/pelvis today -Stool ball is < 8 cm, no need for GI consult at this time -Continue aggressive bowel regimen with MiraLAX and senna (4) COVID-19: Plan: -Likely still testing positive after being positive at the end of March at [facility] -Had been asymptomatic since testing positive -Stable on RA -Symptomatic treatment with incentive spirometry, flutter therapy, prn albuterol -Keep SpO2 at or above 94% (5) Hypercalcemia: Plan: -10.4 today -Likely due to dehydration -Monitor am BMP (6) Lumbar stenosis: Plan: -No acute trauma on CT abdomen/pelvis -Back pain is chronic per family -Will order prn tylenol, lidocaine patch, and heating pad (7) Anxiety: Plan: -Continue effexor Admission and Anticipated Discharge Date Admission Date: April 24, 2023 Subjective Patient is pleasantly confused daughter was updated at bedside she is able to follow commands and be pleasant having casual conversation no focal complaints Physical Exam Physical Exam: Cardiac exam is regular Bilateral lateral lung puente do have rales reminiscent of likely viral pneumonia Abdomen NABS soft and nontender Results & Data Results & Data Vital Signs (Past 12 Hours) Vital Signs Temp Pulse Resp BP Pulse Ox O2 Del Method 04/25/23 07:35 Room Air 04/25/23 07:35 98.2 F 88 16 112/60 94 Room Air 04/25/23 04:00 99.0 F 104 H 16 138/81 91 Room Air 04/25/23 01:38 Room Air 04/24/23 23:50 98.6 F 100 H 18 121/75 93 Room Air 04/24/23 20:12 100.2 F H 86 18 154/58 H 92 Room Air Laboratory Results Reviewed CBC reviewed chemistry Blood cultures 1 of 2 is positive for gram-positive's considered contaminant Urine culture shows greater than 100,000 colonies of gram-negative bacteria CT scan suggest stercoral colitis currently on antibiotics Chest x-ray shows interstitial thickening PG Care Time/CCT Total # of Minutes Spent Total Time Spent with Patient: Total time spent is greater than 50% in coordination of care (as documented) at patient's floor/unit and/or counseling patient: Coding Level of Care Code 67150 SUB INP/OBS CARE 3/50MIN Diagnoses Generalized weakness R53.1 Dementia F03.90 Stercoral colitis K52.89 COVID-19 U07.1 Hypercalcemia E83.52 Lumbar stenosis M48.061 Anxiety F41.9
[2023-04-25 08:20] LABS: Basophils # (auto) 0.03 K/uL (0.00-0.20); Basophils % (auto) 0.2 %; Hematocrit (blood only) 38.5 % (37.0-47.0); Hemoglobin 12.7 g/dl (12.0-16.0); Immature Granulocytes # (auto) 0.05 K/uL (0.01-0.20); Immature Granulocytes % (auto) 0.3 %; Lymphocytes # (auto) 1.01 K/uL (1.20-3.40); Lymphocytes % (auto) 6.6 %; Mean Corpuscular Hemoglobin 30.4 pg (25.0-34.0); Mean Corpuscular Volume 92.1 fL (80.0-100.0); Mean Platelet Volume 8.6 fL (9.4-12.4); Monocytes # (auto) 1.03 K/uL (0.11-0.59); Monocytes % (auto) 6.7 %; Neutrophils # (auto) 13.15 K/uL (1.40-6.50); Neutrophils % (auto) 86.2 %; Platelet Count 194 K/uL (130-400); RDW Coefficient of Variation 13.2 % (11.5-14.5); Red Blood Count 4.18 M/uL (4.20-5.40); White Blood Count 15.27 K/ul (4.8-10.8)
[2023-04-25 08:36] LABS: Albumin Level 3.1 gm/dl (3.4-5.0); BUN Creatinine Ratio 20.3 (10-20); Bilirubin,Total 0.6 mg/dl (0.2-1.0); Calcium 8.9 mg/dl (8.6-10.3); Creatinine Clr Calc Pharmacy 45.4 ml/min; Est GFR (African American) 81.9 ml/min; Est GFR (Non-African American) 70.7 ml/min; Magnesium 1.8 mg/dl (1.7-2.4); Total Protein 6.1 gm/dl (6.0-8.3)
[2023-04-25 08:37] LABS: INR 1.1 (0.9-1.1); Prothrombin Time 12.1 Seconds (9.0-12.0)
[2023-04-25 12:35] LABS: A calco-baum cmplx NotReported Not Detected (NotDetected); Bact fragilis Not Reported Not Detected (NotDetected); C auris Not Reported Not Detected (NotDetected); Calbicans Not Reported Not Detected (NotDetected); Candida glabrata Not Reported Not Detected (NotDetected); Candida krusei Not Reported Not Detected (NotDetected); Cneoformans/gatti Not Reported Not Detected (NotDetected); Cparapsilosis Not Reported Not Detected (NotDetected); E cloacae compx Not Reported Not Detected (NotDetected); Efaecalis Not Reported Not Detected (NotDetected); Efaecium Not Reported Not Detected (NotDetected); Enterobacterales Not Reported Not Detected (NotDetected); Escherichia coli Not Reported Not Detected (NotDetected); H influenzae Not Reported Not Detected (NotDetected); K aerogenes Not Reported Not Detected (NotDetected); Koxytoca Not Reported Not Detected (NotDetected); Kpneumoniae grp Not Reported Not Detected (NotDetected); Lmonocyt Not Reported Not Detected (NotDetected); N meningitidis Not Reported Not Detected (NotDetected); P aeruginosa Not Reported Not Detected (NotDetected); Proteus spp Not Reported Not Detected (NotDetected); Salmonella spp Not Reported Not Detected (NotDetected); Smarcescens Not Reported Not Detected (NotDetected); Staph lugdunensis Not Reported Not Detected (NotDetected); Staph spp. Not Reported DETECTED (NotDetected); Staphaureus Not Reported Not Detected (NotDetected); Staphepi Not Reported DETECTED (NotDetected); Staphylococcus spp. DETECTED (NotDetected); Stenmaltophilia Not Reported Not Detected (NotDetected); Strep agal(GrpB) Not Reported Not Detected (NotDetected); Strep pneum Not Reported Not Detected (NotDetected); Strep pyog (GrpA) Not Reported Not Detected (NotDetected); Strep spp Not Reported Not Detected (NotDetected); mecAC Resistant Gene Not Detected (NotDetected)
[2023-04-25 14:08] LABS: Staphylococcus epidermidis DETECTED (NotDetected)
[2023-04-25] MEDS: VANCOMYCIN HCL 1,000 MG in SODIUM CHLORIDE 0.9% 250 ML IV SCH (14:55)
[2023-04-25] MEDS: POLYETHYLENE (MIRALAX) 17 GM PACK PO SCH (21:35)
[2023-04-25] MEDS: DONEPEZIL HCL 10 MG TAB PO SCH (21:36)
[2023-04-26] MEDS: CEFEPIME 2,000 MG in SYRINGE 0 ML IV SCH (04:43)
[2023-04-26] MEDS: ARTIFICIAL TEARS OP SCH ×2 (06:18→21:10)
[2023-04-26] MEDS: VENLAFAXINE HCL XR 75 MG CAPXR PO SCH (06:19)
[2023-04-26] MEDS: busPIRone 5 MG TAB PO SCH ×3 (06:19→17:58)
[2023-04-26] MEDS: VENLAFAXINE HCL XR 37.5 MG CAPXR PO SCH (06:19)
[2023-04-26] MEDS: EZETIMIBE 10 MG TAB PO SCH (06:19)
[2023-04-26 07:07] LABS: Basophils # (auto) 0.01 K/uL (0.00-0.20); Basophils % (auto) 0.1 %; Hematocrit (blood only) 33.2 % (37.0-47.0); Hemoglobin 11.1 g/dl (12.0-16.0); Immature Granulocytes # (auto) 0.04 K/uL (0.01-0.20); Immature Granulocytes % (auto) 0.3 %; Lymphocytes # (auto) 1.49 K/uL (1.20-3.40); Lymphocytes % (auto) 12.8 %; Mean Corpuscular Hemoglobin 30.2 pg (25.0-34.0); Mean Corpuscular Hgb Conc 33.4 g/dL (32.0-36.0); Mean Corpuscular Volume 90.2 fL (80.0-100.0); Mean Platelet Volume 9.2 fL (9.4-12.4); Monocytes # (auto) 1.05 K/uL (0.11-0.59); Neutrophils # (auto) 9.04 K/uL (1.40-6.50); Neutrophils % (auto) 77.8 %; Platelet Count 177 K/uL (130-400); RDW Coefficient of Variation 13.4 % (11.5-14.5); RDW Standard Deviation 44.9 fL (36.4-46.3); Red Blood Count 3.68 M/uL (4.20-5.40); White Blood Count 11.63 K/ul (4.8-10.8)
[2023-04-26 07:40] LABS: Bilirubin,Total 1.1 mg/dl (0.2-1.0); Calcium 8.6 mg/dl (8.6-10.3); Magnesium 1.7 mg/dl (1.7-2.4); Potassium 3.4 mmol/L (3.5-5.1)
[2023-04-26 07:41] LABS: BUN Creatinine Ratio 22.6 (10-20); Creatinine Clr Calc Pharmacy 57.9 ml/min; Est GFR (African American) 98.7 ml/min; Est GFR (Non-African American) 85.2 ml/min; Globulin 2.9 gm/dl (2.5-4.0); Total Protein 5.9 gm/dl (6.0-8.3)
[2023-04-26 07:45] LABS: Prothrombin Time 11.2 Seconds (9.0-12.0)
[2023-04-26] MEDS: SENNA 8.6 MG TAB PO SCH (08:41)
[2023-04-26] MEDS: VANCOMYCIN HCL 1,000 MG in SODIUM CHLORIDE 0.9% 250 ML IV SCH (09:20)
--- NOTE | 2023-04-26 10:43 | XRay Report ---
KUB CLINICAL HISTORY: stercoral colitis COMPARISON STUDY: CT of the abdomen and pelvis April 24, 2023. FINDINGS: Moderate amount stool within the rectum is noted. The amount of stool is decreased when com pared to CT of April 24, 2023. A few loops of mildly dilated small bowel are noted. Although sens itivity is diminished on this supine exam, there is no evidence for free air. IMPRESSION: 1. Moderate amount of stool within the rectum, decreased in amount since CT of April 24, 2023. 2. A few loops of mildly dilated small bowel. These are nonspecific although not strongly suggestive of a small bowel obstruction. ACT 112: Negative or not required by law. Electronically signed by: Kareem Mccann M.D. 04/26/2023 10:42 AM
[2023-04-26] MEDS ORDERED: GLYCERIN ADULT 12 SUPP/BOX SUPP PR ONE (13:00)
[2023-04-26] MEDS: POTASSIUM CHLORIDE PWD 20 MEQ PACK PO SCH ×2 (14:30→21:10)
[2023-04-26] MEDS: metroNIDAZOLE 500 MG/100 ML BAG IV SCH ×2 (14:30→21:10)
[2023-04-26] MEDS: cefTRIAXone SODIUM 2,000 MG in DEXTROSE 5% 50 ML IV SCH (14:46)
[2023-04-26] MEDS: POLYETHYLENE (MIRALAX) 17 GM PACK PO SCH (18:20)
[2023-04-26] MEDS: DONEPEZIL HCL 10 MG TAB PO SCH (21:10)
[2023-04-27] MEDS: VENLAFAXINE HCL XR 75 MG CAPXR PO SCH (05:51)
[2023-04-27] MEDS: VENLAFAXINE HCL XR 37.5 MG CAPXR PO SCH (05:52)
[2023-04-27] MEDS: EZETIMIBE 10 MG TAB PO SCH (05:52)
[2023-04-27] MEDS: busPIRone 5 MG TAB PO SCH ×3 (05:52→17:44)
[2023-04-27] MEDS: ARTIFICIAL TEARS OP SCH ×2 (05:52→20:06)
[2023-04-27] MEDS: metroNIDAZOLE 500 MG/100 ML BAG IV SCH ×3 (05:57→21:46)
[2023-04-27 06:11] LABS: Basophils # (auto) 0.02 K/uL (0.00-0.20); Basophils % (auto) 0.2 %; Hematocrit (blood only) 33.1 % (37.0-47.0); Hemoglobin 11.1 g/dl (12.0-16.0); Immature Granulocytes # (auto) 0.03 K/uL (0.01-0.20); Immature Granulocytes % (auto) 0.3 %; Lymphocytes # (auto) 1.62 K/uL (1.20-3.40); Lymphocytes % (auto) 17.1 %; Mean Corpuscular Hemoglobin 30.3 pg (25.0-34.0); Mean Corpuscular Hgb Conc 33.5 g/dL (32.0-36.0); Mean Corpuscular Volume 90.4 fL (80.0-100.0); Mean Platelet Volume 9.2 fL (9.4-12.4); Monocytes # (auto) 0.99 K/uL (0.11-0.59); Monocytes % (auto) 10.4 %; Neutrophils # (auto) 6.83 K/uL (1.40-6.50); Platelet Count 171 K/uL (130-400); RDW Coefficient of Variation 13.2 % (11.5-14.5); RDW Standard Deviation 43.5 fL (36.4-46.3); Red Blood Count 3.66 M/uL (4.20-5.40); White Blood Count 9.49 K/ul (4.8-10.8)
[2023-04-27 06:21] LABS: Albumin Level 2.9 gm/dl (3.4-5.0); BUN Creatinine Ratio 20.4 (10-20); Calcium 8.3 mg/dl (8.6-10.3); Creatinine Clr Calc Pharmacy 73.3 ml/min; Est GFR (African American) 106.6 ml/min; Globulin 2.9 gm/dl (2.5-4.0); Magnesium 1.7 mg/dl (1.7-2.4); Potassium 3.4 mmol/L (3.5-5.1); Total Protein 5.8 gm/dl (6.0-8.3)
[2023-04-27 06:30] LABS: Prothrombin Time 10.9 Seconds (9.0-12.0)
--- NOTE | 2023-04-27 07:43 | Hospitalist Progress Note ---
Date of Service April 26, 2023 Assessment & Plan (1) Generalized weakness: Plan: metabolic encephalopathy, multifactorial, Covid, entero-/rhinovirus, and stercoral colitis with enteropathogenic ecoli suggested on stool pcr Sepsis with elevated lactic acid on presentation, pulmonary changes on CXR could be viral pneumonia, consider viral with confirmed viral infection however is on antibiotics to cover as concern for sepsis on presentation from sterile coral c olitis also now with gram-negative urinary source and possible contaminant gram-positive's blood culture sepsis unclear source poa could be any of the above -S/P 1.5L NSS in the ED,no full volume as abnormal chest x-ray did limited volume resuscitation -with constipation and serocoral colitis, will have stool cathartics did have large stool ball seen on CT scan - stopped cefepime and vancomycin; transitioned to ceftriaxone and flagyl. this will cover anaerobes. --full liquids for now, advance as tolerated demand ischemia possibly chronic troponin elevation (2) Dementia: Plan: -Severe -Continue buspar, donepezil -Fall precautions (3) Stercoral colitis: Plan: -Mild, noted on CT of the abd/pelvis today -Stool ball is < 8 cm, no need for GI consult at this time -Continue aggressive bowel regimen with MiraLAX and senna appears improved (4) COVID-19: Plan: -Likely still testing positive after being positive at the end of March at [facility] -Had been asymptomatic since testing positive -Stable on RA -Symptomatic treatment with incentive spirometry, flutter therapy, prn albuterol -Keep SpO2 at or above 94% (5) Hypercalcemia: Plan: -10.4 today -Likely due to dehydration -Monitor am BMP (6) Lumbar stenosis: Plan: -No acute trauma on CT abdomen/pelvis -Back pain is chronic per family -Will order prn tylenol, lidocaine patch, and heating pad (7) Anxiety: Plan: -Continue effexor Admission and Anticipated Discharge Date Admission Date: April 24, 2023 Subjective 82 yo female has been sleeping the majority of the day. However at bedside, patient awakens and feels improved. Daughter in law is at bedside and also reports that she appears better than when she first came in. Review of Systems Review of Systems: All systems reviewed & are unremarkable except as noted in HPI & below Physical Exam Physical Exam: Cardiac exam is regular Bilateral lateral lung puente do have rales reminiscent of likely viral pneumonia Abdomen NABS soft and nontender Results & Data Results & Data Vital Signs (Past 12 Hours) Vital Signs Temp Pulse Resp BP Pulse Ox O2 Del Method 04/27/23 07:23 36.6 C 72 17 145/77 H 96 Room Air 04/26/23 19:57 Room Air 04/26/23 21:15 36.6 C 73 18 130/84 96 Room Air PG Care Time/CCT Total # of Minutes Spent Total Time Spent with Patient: Total time spent is greater than 50% in coordination of care (as documented) at patient's floor/unit and/or counseling patient: Coding Level of Care Code 83264 SUB INP/OBS CARE 3/50MIN Diagnoses Generalized weakness R53.1 Dementia F03.90 Stercoral colitis K52.89 COVID-19 U07.1 Hypercalcemia E83.52 Lumbar stenosis M48.061 Anxiety F41.9 Time Spent (min) 50
[2023-04-27] MEDS: POTASSIUM CHLORIDE PWD 20 MEQ PACK PO SCH ×2 (08:46→13:40)
[2023-04-27] MEDS: SENNA 8.6 MG TAB PO SCH (08:46)
[2023-04-27] MEDS: cefTRIAXone SODIUM 2,000 MG in DEXTROSE 5% 50 ML IV SCH (13:39)
--- NOTE | 2023-04-27 16:45 | XRay Report ---
KUB CLINICAL HISTORY: Distension. COMPARISON STUDY: CT of the abdomen and pelvis April 24, 2023. KUB April 26, 2023. FINDINGS: A few prominent loops of small bowel are noted. Findings are similar to prior exam. Sensiti vity for detection of free air is diminished on this supine exam but none is identified. No definite evidence for portal venous gas. IMPRESSION: A few prominent loops of small bowel which are similar to prior exam. The findings remai n nonspecific but not highly suggestive of a small bowel obstruction. ACT 112: Negative or not required by law. Electronically signed by: Kareem Mccann M.D. 04/27/2023 4:43 PM
[2023-04-27] MEDS: POLYETHYLENE (MIRALAX) 17 GM PACK PO SCH (19:58)
[2023-04-27] MEDS: DONEPEZIL HCL 10 MG TAB PO SCH (20:06)
--- NOTE | 2023-04-27 23:05 | Hospitalist Progress Note ---
Date of Service April 27, 2023 Assessment & Plan (1) Generalized weakness: Plan: metabolic encephalopathy, multifactorial, Covid, entero-/rhinovirus, and stercoral colitis with enteropathogenic ecoli suggested on stool pcr Sepsis with elevated lactic acid on presentation, pulmonary changes on CXR could be viral pneumonia, consider viral with confirmed viral infection however is on antibiotics to cover as concern for sepsis on presentation from sterile coral c olitis also now with gram-negative urinary source and possible contaminant gram-positive's blood culture sepsis unclear source poa could be any of the above -S/P 1.5L NSS in the ED,no full volume as abnormal chest x-ray did limited volume resuscitation -with constipation and serocoral colitis, will have stool cathartics did have large stool ball seen on CT scan - stopped cefepime and vancomycin; transitioned to ceftriaxone and flagyl. this will cover anaerobes. --full liquids for now, advance as tolerated demand ischemia possibly chronic troponin elevation WBC continue to improve on 04/27 WIll increase activity. Patient is on droplet precautions for enterovirus. (2) Dementia: Plan: -Severe -Continue buspar, donepezil -Fall precautions (3) Stercoral colitis: Plan: -Mild, noted on CT of the abd/pelvis today -Stool ball is < 8 cm, no need for GI consult at this time -Continue aggressive bowel regimen with MiraLAX and senna appears improved x ray continues to show improvement (4) COVID-19: Plan: -Likely still testing positive after being positive at the end of March at [facility] -Had been asymptomatic since testing positive -Stable on RA -Symptomatic treatment with incentive spirometry, flutter therapy, prn albuterol -Keep SpO2 at or above 94% (5) Hypercalcemia: Plan: -10.4 today -Likely due to dehydration -Monitor am BMP (6) Lumbar stenosis: Plan: -No acute trauma on CT abdomen/pelvis -Back pain is chronic per family -Will order prn tylenol, lidocaine patch, and heating pad (7) Anxiety: Plan: -Continue effexor Admission and Anticipated Discharge Date Admission Date: April 24, 2023 Subjective 82 yo female reports feeling better today. She continues to have bowel movements. Review of Systems Review of Systems: All systems reviewed & are unremarkable except as noted in HPI & below Physical Exam Physical Exam: Cardiac exam is regular Bilateral lateral lung puente do have rales reminiscent of likely viral pneumonia Abdomen NABS soft and nontender Results & Data Results & Data Vital Signs (Past 12 Hours) Vital Signs Temp Pulse Resp BP Pulse Ox O2 Del Method 04/27/23 21:38 36.7 C 83 18 148/86 H 95 Room Air 04/27/23 14:28 36.5 C 72 18 143/85 H 97 Room Air PG Care Time/CCT Total # of Minutes Spent Total Time Spent with Patient: Total time spent is greater than 50% in coordination of care (as documented) at patient's floor/unit and/or counseling patient: Coding Level of Care Code 59948 SUB INP/OBS CARE 2/35MIN Diagnoses Generalized weakness R53.1 Dementia F03.90 Stercoral colitis K52.89 COVID-19 U07.1 Hypercalcemia E83.52 Lumbar stenosis M48.061 Anxiety F41.9
[2023-04-28] MEDS: ARTIFICIAL TEARS OP SCH ×2 (05:18→20:41)
[2023-04-28] MEDS: metroNIDAZOLE 500 MG/100 ML BAG IV SCH ×3 (05:19→20:40)
[2023-04-28] MEDS: EZETIMIBE 10 MG TAB PO SCH (05:29)
[2023-04-28] MEDS: VENLAFAXINE HCL XR 75 MG CAPXR PO SCH (05:29)
[2023-04-28] MEDS: VENLAFAXINE HCL XR 37.5 MG CAPXR PO SCH (05:29)
[2023-04-28] MEDS: busPIRone 5 MG TAB PO SCH ×3 (05:29→18:32)
[2023-04-28 06:02] LABS: Hemoglobin 11.5 g/dl (12.0-16.0); Mean Corpuscular Hemoglobin 30.5 pg (25.0-34.0); Mean Corpuscular Hgb Conc 33.8 g/dL (32.0-36.0); Mean Corpuscular Volume 90.2 fL (80.0-100.0); Mean Platelet Volume 8.9 fL (9.4-12.4); Platelet Count 209 K/uL (130-400); RDW Coefficient of Variation 12.9 % (11.5-14.5); RDW Standard Deviation 42.5 fL (36.4-46.3); Red Blood Count 3.77 M/uL (4.20-5.40); White Blood Count 9.26 K/ul (4.8-10.8)
[2023-04-28 06:08] LABS: BUN Creatinine Ratio 13.2 (10-20); C Reactive Protein 13.96 mg/dl (0-0.5); Calcium 8.5 mg/dl (8.6-10.3); Creatinine Clr Calc Pharmacy 67.7 ml/min; Est GFR (African American) 103.9 ml/min; Est GFR (Non-African American) 89.7 ml/min; Potassium 3.4 mmol/L (3.5-5.1)
[2023-04-28] MEDS: SENNA 8.6 MG TAB PO SCH (08:43)
[2023-04-28] MEDS: cefTRIAXone SODIUM 2,000 MG in DEXTROSE 5% 50 ML IV SCH (14:13)
[2023-04-28] MEDS: POLYETHYLENE (MIRALAX) 17 GM PACK PO SCH (19:18)
[2023-04-28] MEDS: DONEPEZIL HCL 10 MG TAB PO SCH (19:19)
--- NOTE | 2023-04-28 20:12 | XRay Report ---
XR KUB/Abdomen 1 view CLINICAL HISTORY: abdominal distention TECHNIQUE: 1 view of the abdomen was obtained. Comparison: Comparison is made to chest radiograph 04/27/2023 FINDINGS: Lung bases are unremarkable. Degenerative changes are seen in the visualized skeleton. The bowel gas pattern is nonobstructive. A moderate amount of stool is noted within the large bowel. IMPRESSION: Nonobstructive bowel gas pattern. ACT 112: Negative or not required by law. Electronically signed by: Shmuel Pritchard M.D. 04/28/2023 8:11 PM
[2023-04-29] MEDS: metroNIDAZOLE 500 MG/100 ML BAG IV SCH ×3 (05:26→20:48)
[2023-04-29] MEDS: VENLAFAXINE HCL XR 37.5 MG CAPXR PO SCH (05:26)
[2023-04-29] MEDS: busPIRone 5 MG TAB PO SCH ×3 (05:26→18:39)
[2023-04-29] MEDS: VENLAFAXINE HCL XR 75 MG CAPXR PO SCH (05:26)
[2023-04-29] MEDS: EZETIMIBE 10 MG TAB PO SCH (05:26)
[2023-04-29] MEDS: ARTIFICIAL TEARS OP SCH ×2 (05:27→20:51)
[2023-04-29] MEDS: SENNA 8.6 MG TAB PO SCH (07:49)
--- NOTE | 2023-04-29 08:51 | Hospitalist Progress Note ---
Date of Service April 28, 2023 Assessment & Plan (1) Generalized weakness: Plan: metabolic encephalopathy, multifactorial, Covid, entero-/rhinovirus, and stercoral colitis with enteropathogenic ecoli suggested on stool pcr Sepsis with elevated lactic acid on presentation, pulmonary changes on CXR could be viral pneumonia, consider viral with confirmed viral infection however is on antibiotics to cover as concern for sepsis on presentation from sterile coral c olitis also now with gram-negative urinary source and possible contaminant gram-positive's blood culture sepsis unclear source poa could be any of the above -S/P 1.5L NSS in the ED,no full volume as abnormal chest x-ray did limited volume resuscitation -with constipation and serocoral colitis, will have stool cathartics did have large stool ball seen on CT scan - stopped cefepime and vancomycin; transitioned to ceftriaxone and flagyl. this will cover anaerobes. --Patient continues to tolerate diet. advance as toelrated. demand ischemia possibly chronic troponin elevation WBC continue to improve on 04/27 WIll increase activity. Patient is on droplet precautions for enterovirus. (2) Dementia: Plan: -Severe -Continue buspar, donepezil -Fall precautions (3) Stercoral colitis: Plan: -Mild, noted on CT of the abd/pelvis today -Stool ball is < 8 cm, no need for GI consult at this time -Continue aggressive bowel regimen with MiraLAX and senna appears improved x ray continues to show improvement (4) COVID-19: Plan: -Likely still testing positive after being positive at the end of March at [facility] -Had been asymptomatic since testing positive -Stable on RA -Symptomatic treatment with incentive spirometry, flutter therapy, prn albuterol -Keep SpO2 at or above 94% (5) Hypercalcemia: Plan: -10.4 today -Likely due to dehydration -Monitor am BMP (6) Lumbar stenosis: Plan: -No acute trauma on CT abdomen/pelvis -Back pain is chronic per family -Will order prn tylenol, lidocaine patch, and heating pad (7) Anxiety: Plan: -Continue effexor Admission and Anticipated Discharge Date Admission Date: April 24, 2023 Subjective Patient reports no new symptoms. Review of Systems Review of Systems: All systems reviewed & are unremarkable except as noted in HPI & below Physical Exam Physical Exam: Cardiac exam is regular Bilateral lateral lung puente do have rales reminiscent of likely viral pneumonia Abdomen NABS soft and nontender Results & Data Results & Data Vital Signs (Past 12 Hours) Vital Signs Temp Pulse Resp BP Pulse Ox O2 Del Method 04/29/23 07:31 Room Air 04/29/23 07:09 37.1 C 82 17 154/78 H 96 Room Air PG Care Time/CCT Total # of Minutes Spent Total Time Spent with Patient: Total time spent is greater than 50% in coordination of care (as documented) at patient's floor/unit and/or counseling patient: Coding Level of Care Code 73165 SUB INP/OBS CARE 2/35MIN Diagnoses Generalized weakness R53.1 Dementia F03.90 Stercoral colitis K52.89 COVID-19 U07.1 Hypercalcemia E83.52 Lumbar stenosis M48.061 Anxiety F41.9
[2023-04-29 10:17] LABS: Basophils # (auto) 0.04 K/uL (0.00-0.20); Basophils % (auto) 0.4 %; Hematocrit (blood only) 34.2 % (37.0-47.0); Hemoglobin 11.6 g/dl (12.0-16.0); Immature Granulocytes # (auto) 0.12 K/uL (0.01-0.20); Immature Granulocytes % (auto) 1.3 %; Lymphocytes # (auto) 1.28 K/uL (1.20-3.40); Lymphocytes % (auto) 13.6 %; Mean Corpuscular Hemoglobin 30.7 pg (25.0-34.0); Mean Corpuscular Hgb Conc 33.9 g/dL (32.0-36.0); Mean Corpuscular Volume 90.5 fL (80.0-100.0); Mean Platelet Volume 8.9 fL (9.4-12.4); Monocytes # (auto) 1.09 K/uL (0.11-0.59); Monocytes % (auto) 11.6 %; Neutrophils # (auto) 6.86 K/uL (1.40-6.50); Neutrophils % (auto) 73.1 %; Platelet Count 237 K/uL (130-400); RDW Standard Deviation 43.3 fL (36.4-46.3); Red Blood Count 3.78 M/uL (4.20-5.40); White Blood Count 9.39 K/ul (4.8-10.8)
--- NOTE | 2023-04-29 10:28 | Hospitalist Progress Note ---
Date of Service April 29, 2023 Assessment & Plan (1) Generalized weakness: Plan: metabolic encephalopathy, multifactorial, Covid, entero-/rhinovirus, and stercoral colitis with enteropathogenic ecoli suggested on stool pcr Sepsis with elevated lactic acid on presentation, pulmonary changes on CXR could be viral pneumonia, consider viral with confirmed viral infection however is on antibiotics to cover as concern for sepsis on presentation from sterile coral c olitis also now with gram-negative urinary source and possible contaminant gram-positive's blood culture sepsis unclear source poa could be any of the above -S/P 1.5L NSS in the ED,no full volume as abnormal chest x-ray did limited volume resuscitation -with constipation and serocoral colitis, will have stool cathartics did have large stool ball seen on CT scan - stopped cefepime and vancomycin; transitioned to ceftriaxone and flagyl. this will cover anaerobes. --Patient continues to tolerate diet. advance as toelrated. demand ischemia possibly chronic troponin elevation remains within normal limits on 04/29 continue to be OOB to chair. Patient is on droplet precautions for enterovirus. (2) Dementia: Plan: -Severe -Continue buspar, donepezil -Fall precautions (3) Stercoral colitis: Plan: -Mild, noted on CT of the abd/pelvis today -Stool ball is < 8 cm, no need for GI consult at this time -Continue aggressive bowel regimen with MiraLAX and senna appears improved x ray continues to show improvement (4) COVID-19: Plan: -Likely still testing positive after being positive at the end of March at [facility] -Had been asymptomatic since testing positive -Stable on RA -Symptomatic treatment with incentive spirometry, flutter therapy, prn albuterol -Keep SpO2 at or above 94% (5) Hypercalcemia: Plan: -10.4 today -Likely due to dehydration -Monitor am BMP (6) Lumbar stenosis: Plan: -No acute trauma on CT abdomen/pelvis -Back pain is chronic per family -Will order prn tylenol, lidocaine patch, and heating pad (7) Anxiety: Plan: -Continue effexor Admission and Anticipated Discharge Date Admission Date: April 24, 2023 Subjective Daughter from [place] at bedside. Patient appears comfortable. Daughter reports she has been having more abdominal pain, and is having difficulty coughing up phelgm. Patient refused hypertonic saline Review of Systems Review of Systems: All systems reviewed & are unremarkable except as noted in HPI & below Physical Exam Physical Exam: Cardiac exam is regular Bilateral lateral lung puente do have rales reminiscent of likely viral pneumonia Abdomen NABS soft and nontender Results & Data Results & Data Vital Signs (Past 12 Hours) Vital Signs Temp Pulse Resp BP Pulse Ox O2 Del Method 04/29/23 07:31 Room Air 04/29/23 07:09 37.1 C 82 17 154/78 H 96 Room Air PG Care Time/CCT Total # of Minutes Spent Total Time Spent with Patient: Total time spent is greater than 50% in coordination of care (as documented) at patient's floor/unit and/or counseling patient: Coding Level of Care Code 67738 SUB INP/OBS CARE 2/35MIN Diagnoses Generalized weakness R53.1 Dementia F03.90 Stercoral colitis K52.89 COVID-19 U07.1 Hypercalcemia E83.52 Lumbar stenosis M48.061 Anxiety F41.9
[2023-04-29] MEDS ORDERED: SODIUM CHLOR 7% 4 ML NEB NEB SCH (10:30)
[2023-04-29 10:36] LABS: Albumin Globulin Ratio 0.9 (0.9-2); Albumin Level 3.1 gm/dl (3.4-5.0); BUN Creatinine Ratio 13.6 (10-20); Bilirubin,Total 0.8 mg/dl (0.2-1.0); C Reactive Protein 19.42 mg/dl (0-0.5); Calcium 8.7 mg/dl (8.6-10.3); Creatinine Clr Calc Pharmacy 60.8 ml/min; Est GFR (African American) 100.3 ml/min; Est GFR (Non-African American) 86.6 ml/min; Globulin 3.3 gm/dl (2.5-4.0); Total Protein 6.4 gm/dl (6.0-8.3)
--- NOTE | 2023-04-29 11:55 | XRay Report ---
XR chest 1V portable CLINICAL HISTORY: fever, cough COMPARISON STUDY: Chest radiograph April 24, 2023. FINDINGS: There is no pneumothorax. There are trace bilateral pleural effusions. Mild cardiomegaly is unchanged. Interstitial thickening is unchanged. Linear bibasilar opacities favor atelectasis. No co nsolidation to suggest pneumonia. IMPRESSION: 1. No significant change in cardiomegaly, interstitial pulmonary edema and trace bilateral pleural ef fusions. 2. No consolidation to suggest pneumonia. ACT 112: Negative or not required by law. Electronically signed by: Kareem Mccann M.D. 04/29/2023 11:53 AM
--- NOTE | 2023-04-29 12:04 | XRay Report ---
KUB CLINICAL HISTORY: stercoral colitis COMPARISON STUDY: CT of the abdomen and pelvis April 24, 2023. KUB April 28, 2023. FINDINGS: The bowel gas pattern is normal. No evidence for free air on this supine exam. Amount of st ool has decreased since CT of April 24, 2023 and is likely within normal limits. IMPRESSION: No evidence for a bowel obstruction. Amount of stool within normal limits. ACT 112: Negative or not required by law. Electronically signed by: Kareem Mccann M.D. 04/29/2023 12:03 PM
[2023-04-29] MEDS: cefTRIAXone SODIUM 2,000 MG in DEXTROSE 5% 50 ML IV SCH ×2 (13:51→14:32)
[2023-04-29] MEDS: POTASSIUM CHLORIDE / WTR 10 MEQ/100 ML PLCT IV SCH ×4 (14:55→18:34)
[2023-04-29] MEDS: MAGNESIUM SULFATE / D5W 1 GM/100 ML BAG IV SCH ×2 (16:10→17:43)
[2023-04-29] MEDS: DONEPEZIL HCL 10 MG TAB PO SCH (20:48)
[2023-04-29] MEDS: MELATONIN 3 MG TAB PO PRN (20:49)
[2023-04-29] MEDS: POLYETHYLENE (MIRALAX) 17 GM PACK PO SCH (20:51)
[2023-04-30 03:54] LABS: Hematocrit (blood only) 33.3 % (37.0-47.0); Hemoglobin 11.1 g/dl (12.0-16.0); Mean Corpuscular Hemoglobin 29.9 pg (25.0-34.0); Mean Corpuscular Hgb Conc 33.3 g/dL (32.0-36.0); Mean Corpuscular Volume 89.8 fL (80.0-100.0); Mean Platelet Volume 8.7 fL (9.4-12.4); Platelet Count 252 K/uL (130-400); RDW Coefficient of Variation 12.9 % (11.5-14.5); RDW Standard Deviation 42.5 fL (36.4-46.3); Red Blood Count 3.71 M/uL (4.20-5.40); White Blood Count 9.12 K/ul (4.8-10.8)
[2023-04-30 04:04] LABS: BUN Creatinine Ratio 11.5 (10-20); C Reactive Protein 18.29 mg/dl (0-0.5); Calcium 8.2 mg/dl (8.6-10.3); Creatinine Clr Calc Pharmacy 58.8 ml/min; Est GFR (African American) 99.2 ml/min; Est GFR (Non-African American) 85.6 ml/min; Phosphorus 2.5 mg/dl (2.5-4.9); Potassium 3.4 mmol/L (3.5-5.1)
[2023-04-30] MEDS: VENLAFAXINE HCL XR 75 MG CAPXR PO SCH (05:40)
[2023-04-30] MEDS: EZETIMIBE 10 MG TAB PO SCH (05:40)
[2023-04-30] MEDS: metroNIDAZOLE 500 MG/100 ML BAG IV SCH ×3 (05:40→22:59)
[2023-04-30] MEDS: VENLAFAXINE HCL XR 37.5 MG CAPXR PO SCH (05:40)
[2023-04-30] MEDS: ARTIFICIAL TEARS OP SCH ×2 (05:40→22:59)
[2023-04-30] MEDS: busPIRone 5 MG TAB PO SCH ×3 (05:41→18:28)
[2023-04-30] MEDS: SENNA 8.6 MG TAB PO SCH (08:16)
[2023-04-30] MEDS: cefTRIAXone SODIUM 2,000 MG in DEXTROSE 5% 50 ML IV SCH (13:24)
[2023-04-30] MEDS: MELATONIN 3 MG TAB PO PRN (22:58)
[2023-04-30] MEDS: DONEPEZIL HCL 10 MG TAB PO SCH (22:59)
--- NOTE | 2023-04-30 23:04 | Hospitalist Progress Note ---
Date of Service April 30, 2023 Assessment & Plan (1) Generalized weakness: Plan: metabolic encephalopathy, multifactorial, Covid, entero-/rhinovirus, and stercoral colitis with enteropathogenic ecoli suggested on stool pcr Sepsis with elevated lactic acid on presentation, pulmonary changes on CXR could be viral pneumonia, consider viral with confirmed viral infection however is on antibiotics to cover as concern for sepsis on presentation from sterile coral c olitis also now with gram-negative urinary source and possible contaminant gram-positive's blood culture sepsis unclear source poa could be any of the above -S/P 1.5L NSS in the ED,no full volume as abnormal chest x-ray did limited volume resuscitation -with constipation and serocoral colitis, will have stool cathartics did have large stool ball seen on CT scan - stopped cefepime and vancomycin; transitioned to ceftriaxone and flagyl. this will cover anaerobes. will continue current antibiotics, and then transition to oral at discharge. Anticipate discharge on 05/01 Inflammatory markers and WBC improving. --Patient continues to tolerate diet. advance as toelrated. demand ischemia possibly chronic troponin elevation remains within normal limits on 04/29 continue to be OOB to chair. Patient is on droplet precautions for enterovirus. (2) Dementia: Plan: -Severe -Continue buspar, donepezil -Fall precautions (3) Stercoral colitis: Plan: -Mild, noted on CT of the abd/pelvis today -Stool ball is < 8 cm, no need for GI consult at this time -Continue aggressive bowel regimen with MiraLAX and senna appears improved x ray continues to show improvement (4) COVID-19: Plan: -Likely still testing positive after being positive at the end of March at [facility] -Had been asymptomatic since testing positive -Stable on RA -Symptomatic treatment with incentive spirometry, flutter therapy, prn albuterol -Keep SpO2 at or above 94% (5) Hypercalcemia: Plan: -10.4 today -Likely due to dehydration -Monitor am BMP (6) Lumbar stenosis: Plan: -No acute trauma on CT abdomen/pelvis -Back pain is chronic per family -Will order prn tylenol, lidocaine patch, and heating pad (7) Anxiety: Plan: -Continue effexor Admission and Anticipated Discharge Date Admission Date: April 24, 2023 Subjective Patient appears comfortable. Updated sonat bedside. Review of Systems Review of Systems: All systems reviewed & are unremarkable except as noted in HPI & below Physical Exam Physical Exam: Cardiac exam is regular Bilateral lateral lung upente do have rales reminiscent of likely viral pneumonia Abdomen NABS soft and nontender Results & Data Results & Data Vital Signs (Past 12 Hours) Vital Signs Temp Pulse Resp BP BP Pulse Ox O2 Del Method 04/30/23 21:39 37.3 C 72 16 149/89 H 94 Room Air 04/30/23 15:04 37.9 C H 85 18 144/84 H 93 Room Air PG Care Time/CCT Total # of Minutes Spent Total Time Spent with Patient: Total time spent is greater than 50% in coordination of care (as documented) at patient's floor/unit and/or counseling patient: Coding Level of Care Code 86816 SUB INP/OBS CARE 2/35MIN Diagnoses Generalized weakness R53.1 Dementia F03.90 Stercoral colitis K52.89 COVID-19 U07.1 Hypercalcemia E83.52 Lumbar stenosis M48.061 Anxiety F41.9
[2023-05-01] MEDS: POLYETHYLENE (MIRALAX) 17 GM PACK PO SCH (00:27)
[2023-05-01] MEDS: ARTIFICIAL TEARS OP SCH (05:26)
[2023-05-01] MEDS: EZETIMIBE 10 MG TAB PO SCH (05:27)
[2023-05-01] MEDS: metroNIDAZOLE 500 MG/100 ML BAG IV SCH (05:27)
[2023-05-01] MEDS: busPIRone 5 MG TAB PO SCH (05:27)
[2023-05-01] MEDS: VENLAFAXINE HCL XR 37.5 MG CAPXR PO SCH (05:28)
[2023-05-01] MEDS: VENLAFAXINE HCL XR 75 MG CAPXR PO SCH (05:28)
[2023-05-01 07:52] LABS: Hematocrit (blood only) 33.7 % (37.0-47.0); Mean Corpuscular Hemoglobin 29.7 pg (25.0-34.0); Mean Corpuscular Hgb Conc 32.6 g/dL (32.0-36.0); Mean Corpuscular Volume 91.1 fL (80.0-100.0); Mean Platelet Volume 8.8 fL (9.4-12.4); Platelet Count 279 K/uL (130-400); RDW Coefficient of Variation 13.2 % (11.5-14.5); RDW Standard Deviation 43.8 fL (36.4-46.3); White Blood Count 6.84 K/ul (4.8-10.8)
[2023-05-01 08:09] LABS: BUN Creatinine Ratio 13.8 (10-20); C Reactive Protein 14.34 mg/dl (0-0.5); Calcium 8.6 mg/dl (8.6-10.3); Creatinine Clr Calc Pharmacy 61.9 ml/min; Est GFR (African American) 100.9 ml/min; Est GFR (Non-African American) 87.1 ml/min; Potassium 3.4 mmol/L (3.5-5.1)
[2023-05-01] MEDS: SENNA 8.6 MG TAB PO SCH (11:10)
[2023-05-01] MEDS ORDERED: SULFAMETHOXAZOLE/TRIMETHOPRIM DS 800/160MG TAB PO SCH (12:00)
[2023-05-01] MEDS ORDERED: metroNIDAZOLE 500 MG TAB PO SCH (12:00)
--- NOTE | 2023-05-09 09:18 | Discharge Summary ---
Date of Service May 01, 2023 Admission HPI Per Admitting Provider Dedra is an 82 year old female with a PMH significant for Dementia, depression/anxiety, HTN, hyperlipidemia, who presented to the [facility] ED on 04/24 from [facility] unit with increasing SOB and generalized weakness. The patient remained stable in the ED. Labs were significant for a leukopenia of 0.50, initial lactate of 4.7, calcium of 10.4, initial high sen trop of 23, UA with positive nitrites, trace leukocyte esterase, 1+ bacterial, 10-20 epithelial cells, and 5-10 hyaline casts, procal of 13, Rhinovirus and Covid 19 positive. Chest xray was read as interstitial thickening without acute abnormality. CT of the abd/pelvis w/IV con was read as 1. Intraoperative septal thickening is seen at both lung bases and there are small pleural effusions. These findings suggest fluid overload/congestive failure. Correlate clinically. 2. Rectosigmoid fecal retention with findings suggestive of a mild stercoral proctitis. Correlate clinically. 3. Additional findings as above.. Prior to admission the patient was given 1.5L NSS, 1gm IV Acetaminophen, 20 mg IV famotidine, and 4 mg IV Zofran. At the time of the exam the patient was lying in bed in no acute distress with her [id number] sitting bedside. History was taken from the daughter in law due to the patient's severe dementia. The patient tested positive for covid 19 at the end of March per the daughter. But she was essentially asymptomatic during that time. Over the past 24-48 hours she has had progressive weakness, decreased oral intake, nausea with non-bloody emesis and non-bloody diarrhea. Due to continued weakness and increased confusion she was sent in to be evaluated. The patient's only complaint at this time is low back pain which is chronic per her Daughter. We discussed code status. The patient is a DNR/DNI and has a POLST form. They are fine with IV fluids and antibiotics but would not want aggressive treatment measures. If she were to continue to decline they would likely want to transition her to comfort measures as her dementia is severe. Principal Diagnosis generalized weakness Discharge Exam Cardiac exam is regular Bilateral lateral lung puente do have rales reminiscent of likely viral pneumonia Abdomen NABS soft and nontender Discharge Data Allergies Allergy/AdvReac Type Severity Reaction Status Date / Time amoxicillin Allergy Anaphylaxis Verified 04/24/23 14:40 hydrochlorothiazide Allergy Unknown Unverified 04/24/23 15:17 Penicillins Allergy Unknown Unverified 04/24/23 15:17 simvastatin Allergy Unknown Unverified 04/24/23 15:17 triamterene Allergy Unknown Unverified 04/24/23 15:17 Consultations 04/24/23 14:33 ED Decision to Admit Stat Ordered Studies 04/24/23 12:01 CT abd pelvis IV con only Stat Hospital Course (1) Generalized weakness: metabolic encephalopathy, multifactorial, Covid, entero-/rhinovirus, and stercoral colitis with enteropathogenic ecoli suggested on stool pcr Sepsis with elevated lactic acid on presentation, pulmonary changes on CXR could be viral pneumonia, consider viral with confirmed viral infection however is on antibiotics to cover as concern for sepsis on presentation from sterile coral colitis also now with gram-negative urinary source and possible contaminant gram-positive's blood culture sepsis unclear source poa could be any of the above -S/P 1.5L NSS in the ED,no full volume as abnormal chest x-ray did limited volume resuscitation -with constipation and serocoral colitis, will have stool cathartics did have large stool ball seen on CT scan - stopped cefepime and vancomycin; transitioned to ceftriaxone and flagyl. this will cover anaerobes. will continue current antibiotics, and then transition to oral as stated below at discharge. Discharged on 05/01 --Patient continues to tolerate diet. advance as toelrated. demand ischemia possibly chronic troponin elevation remains within normal limits on 04/29 continue to be OOB to chair. Patient is on droplet precautions for enterovirus. (2) Dementia: -Severe -Continue buspar, donepezil -Fall precautions (3) Stercoral colitis: -Mild, noted on CT of the abd/pelvis today -Stool ball is < 8 cm, no need for GI consult at this time -Continue aggressive bowel regimen with MiraLAX and senna appears improved x ray continues to show improvement (4) COVID-19: -Likely still testing positive after being positive at the end of March at [facility] -Had been asymptomatic since testing positive -Stable on RA -Symptomatic treatment with incentive spirometry, flutter therapy, prn albuterol (5) Hypercalcemia: -10.4 today -Likely due to dehydration (6) Lumbar stenosis: -No acute trauma on CT abdomen/pelvis -Back pain is chronic per family - prn tylenol, lidocaine patch, and heating pad (7) Anxiety: -Continue effexor Total Time Total Time Spent Total Time Spent (In Minutes): 35 Discharge Plan Discharge Items Patient Disposition: Transfer [facility] Reason For Visit: PENUMONIA, UTI, COVID 19, RINOVIRUS Discharge Diagnosis: COVID 19 Activity: Resume your previous activity Non-emergency contact: Primary Care Provider Call non-emergency contact if: you have any medication questions Follow-up/Referrals: Og Farooq [Primary Care Provider] - Diet: Low Fiber Addtl Attending Provider Instructions: Continue antibiotics for close to close to 3 more days. THis will complete 10 day treatment course. Will recommend we continue on miralax daily to help with Bowel movements WIll recommend a low fiber diet initially.. Pending Studies at Discharge: No Stand-Alone Forms: My [facility] Skilled Items Patient informed of condition?: Yes DNR: Yes (DNR/DNI) Discharge Level of Care: Skilled Communicable Disease: No Discharge Prognosis: Stable Lines: None Urinary Catheter: No Medications and DC Order Prescriptions: New sulfamethoxazole-trimethoprim [Bactrim DS] 800-160 mg tablet 1 tab PO BID Qty: 5 0RF Rx Instructions: Next dose will be evening of 05/01 metronidazole 500 mg tablet 500 mg PO Q8H Qty: 8 0RF Rx Instructions: Next dose will be PM on 05/01 sennosides [Senokot] 8.6 mg Tablet 17.2 mg PO QAM Qty: 30 0RF polyethylene glycol 3350 [Miralax] 17 gram Powder In Packet 17 g PO Q24H Qty: 30 0RF Continued venlafaxine [Effexor XR] 37.5 mg Capsule,Extended Release 24hr 37.5 mg PO .AT 0600 venlafaxine [Effexor XR] 75 mg Capsule,Extended Release 24hr 75 mg PO .AT 0600 donepezil 10 mg Tablet 10 mg PO .AT 2000 acetaminophen 500 mg Tablet 500 mg PO QID PRN (Reason: Pain) TheraTears 0.25 % Drops 1 drp OPHTHALMIC (EYE) . AT 0600,2100 buspirone 10 mg Tablet 10 mg PO . AT 0600,1300,1800 hydrocortisone 2.5 % Cream 1 applic TOPICAL Q8H PRN (Reason: ITCH) calcium carbonate-vitamin D2 600 mg calcium- 200 unit Tablet 2 tab PO .AT 0600, 1900 polyethylene glycol 3350 [Miralax] 17 gram/dose Powder 17 g PO . AT 1300 Lactobacillus acidophilus Capsule 1 cap PO .AT 0600 ezetimibe [Zetia] 10 mg Tablet 10 mg PO .AT 0600 omega-3 fatty acids Capsule 1 cap PO .AT 0600 Centrum Gummies 50 mcg PO . AT 0600 Glucosamine 1,500 mg PO .AT 0600 diclofenac sodium 1 % Gel See Rx Instructions .ROUTE .COMPLEX Rx Instructions: APPLY TO RIGHT SHOULDER AND LEFT KNEE TOPICALLY QID FOR PAIN Discharge Orders: Discharge Order (Routine); Ordered 05/01/23 Ordered By: Juventino Patino Admission Data Admit Date/Time: 04/24/23 14:56 Attending Provider: Juventino Patino Admit Provider: Bruno Rincon Primary Care Provider: Og Farooq Other Providers: [facility] ; Bruno Rincon ; Xiomara Sanchez at [place] Other Interventions: Discharge Summary Assessment (RN) Last Done: 05/01/23 11:57 Coding Level of Care Code 24705 INP/OBS DISCH >30 MIN Diagnoses Generalized weakness R53.1 Dementia F03.90 Stercoral colitis K52.89 COVID-19 U07.1 Hypercalcemia E83.52 Lumbar stenosis M48.061 Anxiety F41.9
== END 2023-05-01 12:07 | DRG 871 ==
LOC: ED 09:52 → SUATTDRO 14:56 → 2N 14:56 → 3E 04-25 23:09